=== PATIENT | female | born 1955 | race Caucasian/White ===

== ENCOUNTER → 2020-03-23 14:24 | Outpatient (BNVA) | payer MEDICAID, SELFPAY | PROVIDERS: PCP Internal Medicine; Referring Provider Internal Medicine; Visit Provider Nurse Practitioner | DX: K80.10 Calculus of gallbladder with chronic cholecystitis without obstruction (principal); K21.9 Gastro-esophageal reflux disease without esophagitis; K74.60 Unspecified cirrhosis of liver; R76.8 Other specified abnormal immunological findings in serum; N39.0 Urinary tract infection, site not specified | CPT/HCPCS: 99214 ==

== ENCOUNTER 2020-04-05 09:35 | Outpatient (REF) | payer MEDICAID, SELFPAY ==
[2020-04-05 12:39] LABS: TSH reflex Free T4 0.73 mIU/mL (0.32-4.0)
== END 2020-04-05 09:36 | disposition home or self-care (01) ==
LOC: HO.LAB 09:35
PROVIDERS: PCP Internal Medicine; Visit Provider Internal Medicine
DX: E03.9 Hypothyroidism, unspecified (principal)
CPT/HCPCS: 84443

== ENCOUNTER → 2020-04-05 | Outpatient (BNVA) | payer MEDICAID, SELFPAY | PROVIDERS: PCP Internal Medicine; Referring Provider Internal Medicine; Visit Provider Student in an Organized Health Care Education/Training Program | DX: G47.33 Obstructive sleep apnea (adult) (pediatric) (principal); J44.9 Chronic obstructive pulmonary disease, unspecified; J30.9 Allergic rhinitis, unspecified | CPT/HCPCS: 99213; 99214 ==

== ENCOUNTER 2020-04-09 19:43 | Inpatient (IN) | payer MEDICAID, SELFPAY ==
[2020-04-09 20:08] VITALS: BP 164/83; PULSE 117; RESP 32; TEMP 37.4; O2SAT 88; BMI 34.2
--- NOTE | 2020-04-09 20:17 | ECG_ITS ---
Test Reason : generalized weakness Blood Pressure : / mmHG Vent. Rate : 120 BPM Atrial Rate : 120 BPM P-R Int : 184 ms QRS Dur : 090 ms QT Int : 314 ms P-R-T Axes : 066 102 048 degrees QTc Int : 443 ms Sinus tachycardia Possible Left atrial enlargement Rightward axis Nonspecific ST abnormality Abnormal ECG Compared to previous EKG of at 04:57:36 Heart rate has increased T-wave inversion in Anterior leads is no longer Present Nonspecific ST and T wave abnormality Inferior leads is new Referred By: Elyse Brice Electronically Signed By:ROCCO FISHER MD
--- NOTE | 2020-04-09 20:18 | XR_ITS ---
EXAMINATION: XR chest 1V CLINICAL INFORMATION: Shortness of breath COMPARISON: Prior chest x-ray 02/01/2020 TECHNIQUE: XR chest 1V Tubes and lines: None Lungs and Alicia: Mild vascular redistribution suggesting congestion. Sacculation of the hemidiaphragm suggesting air trapping disease probably COPD. Pleura: Normal. Costophrenic angles are sharp. No pneumothorax. Heart and mediastinum: Heart is enlarged. Prominent alicia unchanged might be vascular.. Bones: Skeletal structures included are normal for patient's age. XR/XR chest 1V IMPRESSION: There has been no change. Pulmonary vascular congestion. Cardiomegaly. Prominent alicia might be vascular. Underlying air trapping disease.
--- NOTE | 2020-04-09 20:19 | CT_ITS ---
EXAMINATION: CT ABDOMEN AND PELVIS WITHOUT CONTRAST CLINICAL INFORMATION: Abdominal pain. Fever COMPARISON: Portions of a previous study 09/23/18 TECHNIQUE: Multidetector volumetric imaging was performed from the superior aspect of the liver through the pubic symphysis. Sagittal and coronal reformatted images were obtained on the technologist's workstation. The patient was unable to suspend respirations This CT examination was performed using dose optimization techniques as appropriate, variously including the following: *Automated exposure control *Adjustment of mA and/or kV according to patient size (this includes techniques or standardized protocols for targeted exams where dose is matched to indication/reason for exam; i.e. extremities or head) *Use of iterative reconstruction technique DLP: 1074 mGy-cm FINDINGS: There is motion artifact. This limits the exam. Digital combination saw operator: Multiple devices overlie the patient. There is gas and fecal residue throughout the colon. There are some gas-filled segments of small bowel in the right midabdomen. LUNG BASES: Fullness in the round the distal esophagus. LIVER, GALLBLADDER, AND BILIARY TREE: Motion limits detail. The liver contour is nodular. There is no large focal liver lesion demonstrated. Multiple small gallstones. No significant biliary dilation. PANCREAS: No definite mass. SPLEEN: No suspicious focal abnormality. ADRENAL GLANDS: No large mass. KIDNEYS AND URETERS: There is mild fullness of the intrarenal collecting system on the left. This appears similar to the previous study. Tiny calcifications in the pelvis could be vascular. Due to motion this is difficult to evaluate. BLADDER: No suspicious abnormality. There may be a tiny droplet of gas non dependently within the urinary bladder. Correlate with any instrumentation. GASTROINTESTINAL TRACT: Limited due to motion. There are multiple small bowel loops closely related to the ventral abdominal wall. There is a ventral hernia. I suspect previous abdominal wall surgery. The tissue planes between the small bowel loops are not well-defined. There was a similar appearance in 2019. The appendix is normal. The stomach is not well evaluated. ABDOMINAL WALL: Extensive abnormalities with ventral hernia and postoperative changes. LYMPH NODES: No convincing adenopathy. No significant intraperitoneal fluid. VASCULAR: There is no abdominal aortic aneurysm. Previous contrast enhanced exam demonstrated marked upper abdominal venous collaterals PELVIC VISCERA: The uterus is not demonstrated and may be surgically absent. OSSEOUS STRUCTURES: No suspicious focal lesion CT/CT abdomen pelvis wo con IMPRESSION: The study is limited. Upper abdominal venous collaterals and irregular liver contour. Multiple gallstones. Abdominal wall hernias with multiple small bowel loops closely aggregated. No evidence of high-grade obstruction or abscess. Low-grade or developing obstruction cannot be entirely excluded. There may be a tiny droplet of gas within the urinary bladder. Correlate with any instrumentation
--- NOTE | 2020-04-09 20:22 | ED_ITS ---
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 Patient emergency department found to be tachycardic and tachypneic and having a high fever of 104.3, patient declined any recent contacts or any recent travel. patient also just finished antibiotic for UTI. Abdominal pain epigastric and periumbilical, for 2 days, pain with no radiation, patient described it as 5/10 (moderate ), no other associated symptoms except generalized weakness and feeling chills, pain has been constant, described as dull aching. Related Data Home Medications Medication Instructions Recorded Confirmed [id number] 1 cap PO QID cap 03/23/20 04/09/20 3,000-9,500-15,000 unit capsule,delayed releas omeprazole 40 mg capsule,delayed 40 mg PO DAILY 03/23/20 04/09/20 release simethicone 180 mg capsule 180 mg PO QID PRN cap 03/23/20 04/09/20 fluticasone 500 mcg-salmeterol 50 1 inh INHALATION BID 04/05/20 04/09/20 mcg/dose blistr powdr for inhalation fluticasone propionate 50 1 spray INTRANASAL DAILY 04/05/20 04/09/20 mcg/actuation nasal spray,suspension furosemide 20 mg tablet 20 mg PO DAILY 04/05/20 04/09/20 levothyroxine 100 mcg tablet 100 mcg PO DAILY 04/05/20 04/09/20 metformin 500 mg tablet 500 mg PO BID 04/05/20 04/09/20 metoprolol tartrate 25 mg tablet 25 mg PO DAILY 04/05/20 04/09/20 valsartan 160 mg tablet 160 mg PO DAILY 04/05/20 04/09/20 Previous Rx's Medication Instructions Recorded dicyclomine 20 mg tablet 20 mg PO TID #90 tab 03/23/20 Allergies Allergy/AdvReac Type Severity Reaction Status Date / Time No Known Allergies Allergy Verified 04/05/20 10:12 Review of Systems Review of Systems: all other systems are reviewed and are negative Constitutional: Reports as per HPI and Reports no additional constitutional complaints, positive for fever and chills and generalized weakness. Eyes: Reports as per HPI and Reports no additional eye complaints Reports system reviewed and no additional complaints, except as documented Cardiovascular: Reports as per HPI and Reports no additional cardiovascular complaints Respiratory: Reports as per HPI and Reports no additional respiratory complaints, patient found in the emergency department to be tachypneic and hypoxic. Gastrointestinal: Reports as per HPI and Reports no additional gastrointestinal complaints , positive for abdominal pain, rectal bleed? versus vaginal bleed?, Genitourinary: Reports no additional female genitourinary complaints Musculoskeletal: Reports no additional musculoskeletal complaints Skin/Breast: Reports system reviewed and no additional complaints, except as docu Psychiatric: Reports no additional psychiatric complaints Endocrine: Reports no additional endocrine complaints Hematologic/Lymphatic: Reports no additional hematologic/lymphatic complaints Allergic/Immunologic: Reports no additional allergic/immunologic complaints Reports system reviewed and no additional complaints, except as documented and Reports Abnormal speech present [facility] Past Medical History Medical History Acute respiratory failure Allergic rhinitis JERAMIE positive COPD (chronic obstructive pulmonary disease) Diabetes mellitus E coli bacteremia Myocardial infarction MARLEN (obstructive sleep apnea) Surgical History H/O cardiac catheterization H/O hernia repair H/O thyroidectomy H/O: hysterectomy History of esophagogastroduodenoscopy (EGD) Family History Family History Father No problems noted. Mother NIDDY (non-insulin dependent diabetes mellitus in young) Unknown NIDDY (non-insulin dependent diabetes mellitus in young) Social History Social History Household Members: Spouse Alcohol intake: never Smoking Status: Never smoker Smoked in Last 30 Days: No Use of substances other than those prescribed or required for medical reasons: No Advance Directives: No Advance Directives Information Provided: Yes Physical Exam Vital Signs: Vital Signs: Vital Signs Temp Pulse Resp BP Pulse Ox 04/09/20 23:20 98.4 F 101 H 25 H 108/58 L 96 04/09/20 20:44 104.5 F H 32 H 96 04/09/20 20:08 99.3 F 117 H 32 H 164/83 H 88 L Body Mass Index 34.2 Vital signs have been reviewed as normal and appeared to be correct. Blood pressure normal. Tachycardia. tachypnea. fever of 104.3. hypoxic, corrected with 4 L of nasal cannula O2. Appearance: Alert. Oriented X3. No acute distress. Head: Normal external exam. Normocephalic. Atraumatic. No Chavarria signs noted. No raccoon eyes noted Eyes: PERRLA. EOMI. Conjunctiva and sclera normal. Eyelids normal. ENT: EAC normal. TM's Normal. Pharynx normal. Uvula midline. Moist mucous membranes. No trismus noted. No drooling noted. No muffled voice noted. Neck: Normal inspection. Neck supple. FROM. No adenopathy. Thyroid Normal. No meningeal signs. No neck mass noted. CVS: Normal heart rate and rhythm. Heart sound normal. No murmurs noted. Pulses normal throughout. Respiratory: No respiratory distress. Painless inspiration. Breath sounds normal. No wheezes/rales/rhonchi noted. Chest nontender. No accessory muscle usage noted or decreased air movement noted. Abdomen: Soft and nontender. Bowel sounds normal in all 4 quadrants. No distention noted. No organomegaly noted. No visible injury noted. Back: No CVA tenderness. Full range of motion noted. Skin: Skin warm and dry. Normal skin color. Normal skin turgor. No rashes/lesions/lacerations noted. Extremities: No lower extremity edema. Extremities exhibit normal range of motion. Extremities nontender. Neuro: Oriented X 3. No motor deficit. No sensory deficit. Reflexes normal. Rectal exam: Unremarkable, stool yellow color with no apparent blood. Vaginal exam: No blood in the vault normal inspection to the external genitalia. Course Course Course Narrative: 64 years old female came in with 2 days of abdominal pain and blood was found in her underwear wondering if it is from rectally or vaginally, patient found in the emergency department meeting sepsis criteria having fever of 104.3, tachycardic and tachypneic. Fever controlled by Tylenol, IV fluids, workup for severe sepsis rule out, testing for COVID, CT abdomen and pelvis, early empiric antibiotic. Medical Decision Making [facility] Narrative Medical decision making narrative: 64-year-old female came in with tachycardi a, tachypnea, high fever, recently just finished an antibiotic for UTI (unknown antibiotic ), chest x-ray showing no new pneumonia, CT of the abdomen and pelvis is not showing acute intra abdominal pathology, because the elevation of the LFTs patient had an ultrasound of the gallbladder which showed no acute pathology. The only source of patient's symptoms is UTI at this point patient is not meeting criteria for severe sepsis or septic shock patient got IV fluids and a dose of ceftriaxone to cover for UTI. Will admit the patient for further evaluation. Lab Data Lab results reviewed: Yes I reviewed the patient's lab results. Result diagrams: 04/09/20 20:31 04/09/20 20:32 Labs: Lab Results 04/09/20 04/09/20 04/09/20 Range/Units 20:31 20:31 20:31 WBC 5.9 (4.8-10.8) X10*3/uL RBC 4.64 (4.20-5.50) X10*6/uL Hgb 12.9 (12.0-16.0) g/dl Hct 38.3 (37-47) % MCV 82.5 (80-98) fL MCH 27.8 (27.0-33.0) pg MCHC 33.7 (31.0-35.0) g/dl RDW 15.9 (11.0-16.0) % Plt Count 63 L (160-400) X10*3/uL MPV Not Reportable Immature Gran % (Auto) 0.2 (0.0-0.4) % Neut % (Auto) 94.4 H (45-73) % Lymph % (Auto) 4.1 L (20-40) % [place] % (Auto) 0.7 L (2-11) % Eos % (Auto) 0.3 (0-4) % Baso % (Auto) 0.3 (0-2) % Lymph # (Auto) 0.2 L (1.2-4.9) X10*3/uL [place] # (Auto) 0.0 L (0.1-1.2) X10*3/uL Eos # (Auto) 0.0 (0.0-0.4) X10*3/uL Baso # (Auto) 0.0 (0.0-0.2) X10*3/uL Abs Immat Gran (auto) 0.01 (0.00-0.03) X10*3/uL Absolute Neuts (auto) 5.6 (2.0-8.3) X10*3/uL Absolute Nucleated RBC 0.000 (0.0-0.012) X10*3/uL Nucleated RBC % (auto) 0.0 (0.0-0.2) /100WBC Smear Tech's Comments VERIFIED Hold Blue Top Sodium (135-145) mmol/L Potassium (3.3-5.1) mmol/l Chloride (96-108) mmol/L Carbon Dioxide (22-29) mmol/L Anion Gap (12-20) BUN (9-16) mg/dL Creatinine (0.5-1.4) mg/dL Estim Creat Clear Calc Estimated GFR Random Glucose (60-115) mg/dL Lactic Acid 1.5 (0.5-2.0) mmol/L Calcium (8.4-10.2) mg/dL Total Bilirubin (0.0-1.0) mg/dL Direct Bilirubin (0.0-0.5) mg/dL AST (5-31) U/L ALT (0-31) U/L Alkaline Phosphatase (39-117) U/L B-Natriuretic Peptide 224 H (<100) pg/mL Total Protein (6.5-8.0) g/dL Albumin (3.5-5.0) g/dL Lipase (8-78) U/L Urine Color Urine Appearance Urine pH (5.0-8.0) Ur Specific Stanton (1.005-1.025) Urine Protein (NEG-TRACE) MG/DL Urine Glucose (UA) (NEG) MG/DL Urine Ketones (NEG) MG/DL Urine Blood (NEG) Urine Nitrite (NEG) Ur Leukocyte Esterase (NEG) Urine RBC (0) /HPF Urine WBC (0-4) /HPF Ur Squamous Epith Cells /LPF Urine Bacteria /LPF Stool Occult Blood (NEG) Coronavirus (PCR) (Negative) 04/09/20 04/09/20 04/09/20 Range/Units 20:32 20:32 20:33 WBC (4.8-10.8) X10*3/uL RBC (4.20-5.50) X10*6/uL Hgb (12.0-16.0) g/dl Hct (37-47) % MCV (80-98) fL MCH (27.0-33.0) pg MCHC (31.0-35.0) g/dl RDW (11.0-16.0) % Plt Count (160-400) X10*3/uL MPV Immature Gran % (Auto) (0.0-0.4) % Neut % (Auto) (45-73) % Lymph % (Auto) (20-40) % Belmont % (Auto) (2-11) % Eos % (Auto) (0-4) % Baso % (Auto) (0-2) % Lymph # (Auto) (1.2-4.9) X10*3/uL [place] # (Auto) (0.1-1.2) X10*3/uL Eos # (Auto) (0.0-0.4) X10*3/uL Baso # (Auto) (0.0-0.2) X10*3/uL Abs Immat Gran (auto) (0.00-0.03) X10*3/uL Absolute Neuts (auto) (2.0-8.3) X10*3/uL Absolute Nucleated RBC (0.0-0.012) X10*3/uL Nucleated RBC % (auto) (0.0-0.2) /100WBC Smear Tech's Comments Hold Blue Top SEE NOTE Sodium 138 (135-145) mmol/L Potassium 3.7 (3.3-5.1) mmol/l Chloride 107 (96-108) mmol/L Carbon Dioxide 19 L (22-29) mmol/L Anion Gap 16 (12-20) BUN 16 (9-16) mg/dL Creatinine 0.69 (0.5-1.4) mg/dL Estim Creat Clear Calc 93.8 Estimated GFR > 60 Random Glucose 115 (60-115) mg/dL Lactic Acid (0.5-2.0) mmol/L Calcium 8.4 (8.4-10.2) mg/dL Total Bilirubin 3.5 H (0.0-1.0) mg/dL Direct Bilirubin 1.6 H (0.0-0.5) mg/dL AST 144 H (5-31) U/L ALT 73 H (0-31) U/L Alkaline Phosphatase 160 H (39-117) U/L B-Natriuretic Peptide (<100) pg/mL Total Protein 6.9 (6.5-8.0) g/dL Albumin 3.5 (3.5-5.0) g/dL Lipase 19 (8-78) U/L Urine Color Urine Appearance Urine pH (5.0-8.0) Ur Specific Stanton (1.005-1.025) Urine Protein (NEG-TRACE) MG/DL Urine Glucose (UA) (NEG) MG/DL Urine Ketones (NEG) MG/DL Urine Blood (NEG) Urine Nitrite (NEG) Ur Leukocyte Esterase (NEG) Urine RBC (0) /HPF Urine WBC (0-4) /HPF Ur Squamous Epith Cells /LPF Urine Bacteria /LPF Stool Occult Blood NEG (NEG) Coronavirus (PCR) (Negative) 04/09/20 04/09/20 Range/Units 20:54 21:23 WBC (4.8-10.8) X10*3/uL RBC (4.20-5.50) X10*6/uL Hgb (12.0-16.0) g/dl Hct (37-47) % MCV (80-98) fL MCH (27.0-33.0) pg MCHC (31.0-35.0) g/dl RDW (11.0-16.0) % Plt Count (160-400) X10*3/uL MPV Immature Gran % (Auto) (0.0-0.4) % Neut % (Auto) (45-73) % Lymph % (Auto) (20-40) % [place] % (Auto) (2-11) % Eos % (Auto) (0-4) % Baso % (Auto) (0-2) % Lymph # (Auto) (1.2-4.9) X10*3/uL [place] # (Auto) (0.1-1.2) X10*3/uL Eos # (Auto) (0.0-0.4) X10*3/uL Baso # (Auto) (0.0-0.2) X10*3/uL Abs Immat Gran (auto) (0.00-0.03) X10*3/uL Absolute Neuts (auto) (2.0-8.3) X10*3/uL Absolute Nucleated RBC (0.0-0.012) X10*3/uL Nucleated RBC % (auto) (0.0-0.2) /100WBC Smear Tech's Comments Hold Blue Top Sodium (135-145) mmol/L Potassium (3.3-5.1) mmol/l Chloride (96-108) mmol/L Carbon Dioxide (22-29) mmol/L Anion Gap (12-20) BUN (9-16) mg/dL Creatinine (0.5-1.4) mg/dL Estim Creat Clear Calc Estimated GFR Random Glucose (60-115) mg/dL Lactic Acid (0.5-2.0) mmol/L Calcium (8.4-10.2) mg/dL Total Bilirubin (0.0-1.0) mg/dL Direct Bilirubin (0.0-0.5) mg/dL AST (5-31) U/L ALT (0-31) U/L Alkaline Phosphatase (39-117) U/L B-Natriuretic Peptide (<100) pg/mL Total Protein (6.5-8.0) g/dL Albumin (3.5-5.0) g/dL Lipase (8-78) U/L Urine Color RED Urine Appearance CLOUDY Urine pH 6.0 (5.0-8.0) Ur Specific Stanton 1.015 (1.005-1.025) Urine Protein 1+ H (NEG-TRACE) MG/DL Urine Glucose (UA) NEG (NEG) MG/DL Urine Ketones 5 (NEG) MG/DL Urine Blood 3+ H (NEG) Urine Nitrite POS H (NEG) Ur Leukocyte Esterase NEG (NEG) Urine RBC TNTC H (0) /HPF Urine WBC 5-9 H (0-4) /HPF Ur Squamous Epith Cells NONE /LPF Urine Bacteria 1+ /LPF Stool Occult Blood (NEG) Coronavirus (PCR) NEGATIVE (Negative) Imaging Data Chest x-ray: Radiologist's impression: There has been no change. Pulmonary vascular congestion. Cardiomegaly. Prominent broderick might be vascular. Underlying air trapping disease CT scan - abdomen: Radiologist's impression: The study is limited. Upper abdominal venous collaterals and irregular liver contour. Multiple gallstones. Abdominal wall hernias with multiple small bowel loops closely aggregated. No evidence of high-grade obstruction or abscess. Low-grade or developing obstruction cannot be entirely excluded. There may be a tiny droplet of gas within the urinary bladder. Correlate with any instrumentation US - abdomen: Radiologist's impression: 1. There are multiple gallstones, there is tenderness over the gallbladder, there are no other signs to suggest cholecystitis, no gallbladder wall thickening or pericholecystic fluid collection and no dilatation of the common bile duct, cannot entirely rule out the possibility of mild cholecystitis. Please correlate clinically. If patient is symptomatic may consider correlation with HIDA scan. 2. Heterogeneous liver texture with somewhat lobular surface concerning for liver parenchymal disease possibly liver cirrhosis. Discharge Plan Discharge Clinical Impression: Urinary tract infection Patient Disposition: Admitted As Inpatient Prescriptions: No Action fluticasone propionate [Flonase Allergy Relief] 50 mcg/actuation spray,suspension 1 spray intranasal DAILY RF: 0 dicyclomine 20 mg tablet 20 mg PO TID Qty: 90 RF: 3 simethicone [Gas Relief (simethicone)] 180 mg capsule 180 mg PO QID PRN (Reason: Indigestion) RF: 0 omeprazole 40 mg capsule,delayed release(DR/EC) 40 mg PO DAILY RF: 0 Creon 3,000-9,500- 15,000 unit capsule,delayed release(DR/EC) 1 cap PO QID RF: 0 metformin 500 mg tablet 500 mg PO BID RF: 0 valsartan 160 mg tablet 160 mg PO DAILY RF: 0 levothyroxine 100 mcg tablet 100 mcg PO DAILY RF: 0 furosemide 20 mg tablet 20 mg PO DAILY RF: 0 fluticasone propion-salmeterol 500-50 mcg/dose blister with device 1 inh inhalation BID RF: 0 metoprolol tartrate 25 mg tablet 25 mg PO DAILY RF: 0
[2020-04-09] MEDS: Acetaminophen 325 MG TABLET 650 MG PO (20:28)
[2020-04-09] MEDS: 0.9 % Sodium Chloride 500 ML 1000 ML IV (20:29)
[2020-04-09 20:40] LABS: OBS1 NEG (NEG)
[2020-04-09 20:41] LABS: OBS Int Ctl Valid YES
[2020-04-09 20:41] LABS: Eosinophils Percent Auto 0.3 % (0-4); Hemoglobin 12.9 g/dl (12.0-16.0); Imm Gran Abs Auto 0.01 X10*3/uL (0.00-0.03); Imm Gran Pct Auto 0.2 % (0.0-0.4); MANUAL DIFF FLAG SCAN; Mean Corpuscular Hemoglobin 27.8 pg (27.0-33.0); Monocytes Percent Auto 0.7 % (2-11); PLT CLUMP 1; Red Blood Count 4.64 X10*6/uL (4.20-5.50); SCAN SMEAR FLAG 1
[2020-04-09 20:43] LABS: Basophils Percent Auto 0.3 % (0-2); Hematocrit 38.3 % (37-47); Lymphocytes Absolute Auto 0.2 X10*3/uL (1.2-4.9); Lymphocytes Percent Auto 4.1 % (20-40); Mean Corpuscular HGB Conc 33.7 g/dl (31.0-35.0); Mean Corpuscular Volume 82.5 fL (80-98); Neutrophils Absolute Auto 5.6 X10*3/uL (2.0-8.3); Neutrophils Percent Auto 94.4 % (45-73); Red Cell Distribution Width 15.9 % (11.0-16.0); White Blood Count 5.9 X10*3/uL (4.8-10.8)
[2020-04-09 20:44] VITALS: RESP 32; TEMP 40.3; O2SAT 96
[2020-04-09] MEDS: cefTRIAXone sodium 1 GM in 0.9 % Sodium Chloride 50 ML IV (20:56)
[2020-04-09 20:59] LABS: Platelet Count 63 X10*3/uL (160-400)
[2020-04-09 21:00] LABS: SLIDE REVIEW VERIFIED
[2020-04-09 21:17] LABS: Lactic Acid 1.5 mmol/L (0.5-2.0)
--- NOTE | 2020-04-09 21:26 | PC.NURSE ---
Pt back from cat scan via stretcher Pt daughter in waiting room, would like to be called for updates Pt up to commode at bedside, urine cloudy and red. Urine obtained and sent. Pt sitting up to side of bed at this time, continues to be on oxygen LS clear dim at bases and mid right. pt getting oxygen via nc 3L
[2020-04-09 21:27] LABS: B Type Natriuretic Peptide 224 pg/mL (<100)
[2020-04-09 21:33] LABS: Alanine Aminotransferase 73 U/L (0-31); Albumin Level 3.5 g/dL (3.5-5.0); Alkaline Phosphatase 160 U/L (39-117); Anion Gap 16 (12-20); Aspartate Amino Transferase 144 U/L (5-31); Bilirubin Direct 1.6 mg/dL (0.0-0.5); Bilirubin Total 3.5 mg/dL (0.0-1.0); Blood Urea Nitrogen 16 mg/dL (9-16); Calcium 8.4 mg/dL (8.4-10.2); Carbon Dioxide 19 mmol/L (22-29); Chloride 107 mmol/L (96-108); Creatinine Clr Calc Pharmacy 93.8; Estimated Glomerular Filt Rate > 60; Glucose Random 115 mg/dL (60-115); Lipase 19 U/L (8-78); Potassium 3.7 mmol/l (3.3-5.1); Sodium 138 mmol/L (135-145); Total Protein 6.9 g/dL (6.5-8.0)
[2020-04-09 21:38] LABS: Glucose Urine UA NEG (NEG); Leukocyte Esterase Urine NEG (NEG); Nitrite Urine POS (NEG); Specific Gravity - Urine 1.015 (1.005-1.025); Urine Blood 3+ (NEG); Urine Ketones 5 MG/DL (NEG); Urine Protein 1+ MG/DL (NEG-TRACE)
[2020-04-09 21:39] LABS: Appearance Urine CLOUDY; Color Urine RED
[2020-04-09 21:41] LABS: Bacteria Urine 1+ /LPF; RBC Urine TNTC /HPF (0)
--- NOTE | 2020-04-09 22:21 | US_ITS ---
EXAMINATION: US ABDOMEN LIMITED CLINICAL INFORMATION: Fever abdominal pain and elevated LFTs. COMPARISON: CT scan same day earlier. TECHNIQUE: Real-time imaging of the right upper quadrant abdominal viscera. FINDINGS: PANCREAS: Normal. LIVER: Echogenic liver suggesting hepatic steatosis. Liver surface is a probably somewhat lobular concerning for possible liver cirrhosis. No focal hepatic lesion. There is no intrahepatic biliary duct dilatation seen. GALLBLADDER: There are multiple gallstones. The wall of the gallbladder is not thickened and there is no pericholecystic fluid collection. There is some tenderness over the gallbladder area. Cannot entirely rule out the possibility of cholecystitis. COMMON BILE DUCT: Normal in caliber measuring 0.3 cm in diameter. RIGHT KIDNEY: Normal. No hydronephrosis. No renal calculi or focal parenchymal lesions. The kidney measures 8.8 cm in maximum dimension. FREE FLUID: None. US/US abdomen limited IMPRESSION: 1. There are multiple gallstones, there is tenderness over the gallbladder, there are no other signs to suggest cholecystitis, no gallbladder wall thickening or pericholecystic fluid collection and no dilatation of the common bile duct, cannot entirely rule out the possibility of mild cholecystitis. Please correlate clinically. If patient is symptomatic may consider correlation with HIDA scan. 2. Heterogeneous liver texture with somewhat lobular surface concerning for liver parenchymal disease possibly liver cirrhosis.
[2020-04-09 22:33] LABS: SARS COV2 PCR INHOUSE NEGATIVE (Negative)
[2020-04-09 23:20] VITALS: BP 108/58; PULSE 101; RESP 25; TEMP 36.9; O2SAT 96
[2020-04-10] VITALS (8 sets, daily range): BP systolic 98–135; BP diastolic 55–68; PULSE 69–78; RESP 18–20; TEMP 36.3–37.1; O2SAT 95–98; BMI 32.4
--- NOTE | 2020-04-10 00:16 | PC.NURSE ---
Attempt to give report to the floor, floor nurse to call back.
--- NOTE | 2020-04-10 03:02 | P.HPIM_ITS ---
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 Patient reports that she had a UTI about 15 days ago, which also presented as which she urea, she reports that she had UA done at her PCP and found UTI was given antibiotics which she finished 3 days ago. Patient reports that since finishing antibiotic she developed more hematuria, urgency, urinary frequency. She also has fever and chills. She has nausea with Few episodes of vomiting. She has generalized weakness and shaking. She otherwise has no chest pain, shortness of breath, no abdominal pain. On arrival to the ED hemodynamically stable with tachycardia, tachypnea, with a heart rate of 117 and respiratory rate of 32, labs are significant for normal WBC count, left shift, total bili of 3.5, direct bili of 1.6, AST of 144, ALT 73, alk-phos of 160 area that is positive for blood, nitrite, WBC abdominal CT showed upper abdominal venous collaterals on rate irregular liver contour concerning for liver cirrhosis, abdominal wall hernias with multiple small bowel loops closer grade gated with no evidence of obstruction. ABD US showed gallstones with no evidence of cholecystitis Past medical history: Hypertension, diabetes, hypothyroidism, GERD, liver cirrhosis, COPD, history of coronary artery disease past surgical history: Thyroidectomy, hysterectomy, hernia repair family history: Significant for hypertension, diabetes social history: Comes from home, lives with her her daughter, denies any tobacco alcohol or illicit drugs Review of Systems Review of Systems: Yes all other systems are reviewed and are negative [facility] Medical History Acute respiratory failure Allergic rhinitis JERAMIE positive COPD (chronic obstructive pulmonary disease) Diabetes mellitus E coli bacteremia Myocardial infarction MARLEN (obstructive sleep apnea) Family History Father No problems noted. Mother NIDDY (non-insulin dependent diabetes mellitus in young) Unknown NIDDY (non-insulin dependent diabetes mellitus in young) Surgical History H/O cardiac catheterization H/O hernia repair H/O thyroidectomy H/O: hysterectomy History of esophagogastroduodenoscopy (EGD) Social History Household Members: Spouse Housing: Apartment Do you presently have visiting nurse or other home services: No Alcohol intake: never Smoking Status: Never smoker Smoked in Last 30 Days: Yes Use of substances other than those prescribed or required for medical reasons: No Advance Directives: No Advance Directives Information Provided: Yes Meds Allergies Allergy/AdvReac Type Severity Reaction Status Date / Time No Known Allergies Allergy Verified 04/05/20 10:12 Home Medications Medication Instructions Recorded Confirmed Type qevewe-[id number]-bwquest 1 cap PO QID cap 03/23/20 04/09/20 History 3,000-9,500-15,000 unit capsule,delayed releas omeprazole 40 mg capsule,delayed 40 mg PO DAILY 03/23/20 04/09/20 History release simethicone 180 mg capsule 180 mg PO QID PRN cap 03/23/20 04/09/20 History fluticasone 500 mcg-salmeterol 50 1 inh INHALATION BID 04/05/20 04/09/20 History mcg/dose blistr powdr for inhalation fluticasone propionate 50 1 spray INTRANASAL DAILY 04/05/20 04/09/20 History mcg/actuation nasal spray,suspension furosemide 20 mg tablet 20 mg PO DAILY 04/05/20 04/09/20 History levothyroxine 100 mcg tablet 100 mcg PO DAILY 04/05/20 04/09/20 History metformin 500 mg tablet 500 mg PO BID 04/05/20 04/09/20 History metoprolol tartrate 25 mg tablet 25 mg PO DAILY 04/05/20 04/09/20 History valsartan 160 mg tablet 160 mg PO DAILY 04/05/20 04/09/20 History Physical Exam Vital Signs and Narrative: Vital Signs: Last Vital Signs Temp 98.4 F 04/10/20 02:40 Pulse 77 04/10/20 02:40 Resp 20 04/10/20 02:40 BP 117/65 04/10/20 02:40 Pulse Ox 96 04/10/20 02:40 Body Mass Index 34.2 Const: General: cooperative and no acute distress Orientation/consciousness: patient oriented x3 Eyes: General: appearance normal, both eyes and all related structures Pupils: Equal, round and reactive pupils present Resp: Effort & Inspection: normal respiratory effort and able to speak in complete sentences Auscultation: clear to auscultation bilaterally Cardio: Rate: regular rate Rhythm: regular rhythm GI: Palpation (GI): Soft to palpation Auscultation: normal bowel sounds : Other: no CVA tenderness Skin: General skin exam: no rashes or lesions noted Neuro: General: patient oriented x3 Cranial nerves: Yes Equal, round and reactive pupils present Cognition (Neuro): normal cognition Extrem: General: Yes normal to inspection and Yes no pedal edema Results Labs Labs: Laboratory Tests 04/09/20 04/09/20 04/09/20 20:31 20:31 20:31 WBC 5.9 RBC 4.64 Hgb 12.9 Hct 38.3 MCV 82.5 MCH 27.8 MCHC 33.7 RDW 15.9 Plt Count 63 L MPV Not Reportable Immature Gran % (Auto) 0.2 Neut % (Auto) 94.4 H Lymph % (Auto) 4.1 L [place] % (Auto) 0.7 L Eos % (Auto) 0.3 Baso % (Auto) 0.3 Lymph # (Auto) 0.2 L [place] # (Auto) 0.0 L Eos # (Auto) 0.0 Baso # (Auto) 0.0 Abs Immat Gran (auto) 0.01 Absolute Neuts (auto) 5.6 Absolute Nucleated RBC 0.000 Nucleated RBC % (auto) 0.0 Smear Tech's Comments VERIFIED Hold Blue Top Sodium Potassium Chloride Carbon Dioxide Anion Gap BUN Creatinine Estim Creat Clear Calc Estimated GFR Random Glucose Lactic Acid 1.5 Calcium Total Bilirubin Direct Bilirubin AST ALT Alkaline Phosphatase B-Natriuretic Peptide 224 H Total Protein Albumin Lipase Urine Color Urine Appearance Urine pH Ur Specific [place] Urine Protein Urine Glucose (UA) Urine Ketones Urine Blood Urine Nitrite Ur Leukocyte Esterase Urine RBC Urine WBC Ur Squamous Epith Cells Urine Bacteria Stool Occult Blood Coronavirus (PCR) 04/09/20 04/09/20 04/09/20 20:32 20:32 20:33 WBC RBC Hgb Hct MCV MCH MCHC RDW Plt Count MPV Immature Gran % (Auto) Neut % (Auto) Lymph % (Auto) F[place] % (Auto) Eos % (Auto) Baso % (Auto) Lymph # (Auto) [place] # (Auto) Eos # (Auto) Baso # (Auto) Abs Immat Gran (auto) Absolute Neuts (auto) Absolute Nucleated RBC Nucleated RBC % (auto) Smear Tech's Comments Hold Blue Top SEE NOTE Sodium 138 Potassium 3.7 Chloride 107 Carbon Dioxide 19 L Anion Gap 16 BUN 16 Creatinine 0.69 Estim Creat Clear Calc 93.8 Estimated GFR > 60 Random Glucose 115 Lactic Acid Calcium 8.4 Total Bilirubin 3.5 H Direct Bilirubin 1.6 H AST 144 H ALT 73 H Alkaline Phosphatase 160 H B-Natriuretic Peptide Total Protein 6.9 Albumin 3.5 Lipase 19 Urine Color Urine Appearance Urine pH Ur Specific [place] Urine Protein Urine Glucose (UA) Urine Ketones Urine Blood Urine Nitrite Ur Leukocyte Esterase Urine RBC Urine WBC Ur Squamous Epith Cells Urine Bacteria Stool Occult Blood NEG Coronavirus (PCR) 04/09/20 04/09/20 20:54 21:23 WBC RBC Hgb Hct MCV MCH MCHC RDW Plt Count MPV Immature Gran % (Auto) Neut % (Auto) Lymph % (Auto) [place] % (Auto) Eos % (Auto) Baso % (Auto) Lymph # (Auto) [place] # (Auto) Eos # (Auto) Baso # (Auto) Abs Immat Gran (auto) Absolute Neuts (auto) Absolute Nucleated RBC Nucleated RBC % (auto) Smear Tech's Comments Hold Blue Top Sodium Potassium Chloride Carbon Dioxide Anion Gap BUN Creatinine Estim Creat Clear Calc Estimated GFR Random Glucose Lactic Acid Calcium Total Bilirubin Direct Bilirubin AST ALT Alkaline Phosphatase B-Natriuretic Peptide Total Protein Albumin Lipase Urine Color RED Urine Appearance CLOUDY Urine pH 6.0 Ur Specific [place] 1.015 Urine Protein 1+ H Urine Glucose (UA) NEG Urine Ketones 5 Urine Blood 3+ H Urine Nitrite POS H Ur Leukocyte Esterase NEG Urine RBC TNTC H Urine WBC 5-9 H Ur Squamous Epith Cells NONE Urine Bacteria 1+ Stool Occult Blood Coronavirus (PCR) NEGATIVE Assessment and Plan (1) Sepsis: Status: Acute (2) Urinary tract infection: Qualifiers: Hematuria presence: with hematuria Urinary tract infection type: site unspecified Qualified Code(s): N39.0 - Urinary tract infection, site not specified; R31.9 - Hematuria, unspecified Status: Acute (3) Diabetes mellitus: Status: Acute (4) Chronic cholecystitis: Problem details: HIDA SCAN 02/2020 IMPRESSION: 1. Visualization of the gallbladder is evidence of a patent cystic duct and strong evidence against the diagnosis of acute cholecystitis. The common bile duct is patent. Liver function appears normal. 2. Poor gallbladder emptying and a low gallbladder ejection fraction are evidence of impaired gallbladder contractility and most likely due to chronic cholecystitis. Status: Acute (5) GERD (gastroesophageal reflux disease): Status: Acute (6) Chronic hepatitis C: Problem details: 03/05 20- VIRAL LOAD LIKELY [employer] IMMUNITY Status: Acute (7) Hypothyroid: Status: Acute (8) Cirrhosis: Problem details: Most likely from chronic hepatitis C it has since resolved but may be an overlay of CARDONA * LABS; LABS: 02/2020 hemochromatosis genetic screen was negative, ferritin was 203, which was a sudden jump from 53 last year autoimmune workup is negative, ceruloplasmin is normal * US ABD 01/2020 IMPRESSION: Irregular heterogeneous liver suggesting underlying cirrhosis. No suspicious focal liver lesion or ascites. Suspect upper abdominal venous collaterals. The deep abdominal venous system was not interrogated. Status: Acute (9) Hematuria: Status: Acute this is a 64-year-old female with above-mentioned past medical history who presents to the hospital with sepsis secondary to UTI # sepsis - secondary to urinary tract infection - failed outpatient therapy - UA positive for leukocyte as well as nitrites - tachycardic, as well as tachypneic on arrival plan: - Start on ceftriaxone - blood cultures been collected in the ED as well as urine cultures will follow - IV fluids # hematuria - most likely secondary to UTI - hemoglobin stable Plan: - Treat with antibiotics of the TI - if hematuria continues to sitter urology consult # UTI - failed outpatient therapy - will start with ceftriaxone - follow urine cultures # chronic cholecystitis - abdominal ultrasound negative for any active acute cholecystitis # hypothyroidism - continue levothyroxine # history of liver cirrhosis with chronic hep C - patient reports that she is being followed by gastroenterology at this time - follow-up outpatient # diabetes - and metformin- will hold - will start low-dose sliding scale insulin - diabetic diet DVT prophylaxis: SCDs #
[2020-04-10 03:04] LABS: Glucose, Whole Blood 128 mg/dL (60-115)
[2020-04-10] MEDS: 0.9 % Sodium Chloride Flush 3 ML SYRINGE IVFLUSH (06:01)
[2020-04-10] MEDS: Lactated Ringers 1,000 ML 100 ML IVCONT ×2 (06:02→15:55)
[2020-04-10] MEDS: Levothyroxine Sodium 100 MCG TABLET PO (06:04)
[2020-04-10 06:13] LABS: Hemoglobin 11.5 g/dl (12.0-16.0); PLT ABN DIST 1; Platelet Count 69 X10*3/uL (160-400)
[2020-04-10 06:15] LABS: Hematocrit 33.7 % (37-47); Mean Corpuscular HGB Conc 34.1 g/dl (31.0-35.0); Mean Corpuscular Hemoglobin 28.6 pg (27.0-33.0); Mean Corpuscular Volume 83.8 fL (80-98); Mean Platelet Volume 12.4 fL (9.4-12.3); Red Blood Count 4.02 X10*6/uL (4.20-5.50); Red Cell Distribution Width 15.8 % (11.0-16.0); White Blood Count 16.2 X10*3/uL (4.8-10.8)
[2020-04-10 06:41] LABS: Anion Gap 11 (12-20); Blood Urea Nitrogen 16 mg/dL (9-16); Calcium 7.8 mg/dL (8.4-10.2); Carbon Dioxide 21 mmol/L (22-29); Chloride 110 mmol/L (96-108); Creatinine Clr Calc Pharmacy 88.6; Estimated Glomerular Filt Rate > 60; Glucose Random 139 mg/dL (60-115); Potassium 3.5 mmol/l (3.3-5.1); Sodium 138 mmol/L (135-145)
[2020-04-10 07:24] LABS: Glucose, Whole Blood 105 mg/dL (60-115)
[2020-04-10 07:28] LABS: Band Neutrophils Percent 18 % (3-5); Lymphocytes Absolute Manual 0.5 X10*3/uL (0.6-4.8); Lymphocytes Percent Manual 3 % (20-40); Monocytes Absolute Manual 0.2 X10*3/uL (0.0-1.2); Monocytes Percent Manual 1 % (2-11); Neutrophils Absolute Manual 15.6 X10*3/uL (2.2-7.9); Neutrophils Percent Manual 78 % (45-73)
[2020-04-10 07:29] LABS: RBC Morphology NOTED
[2020-04-10 07:30] LABS: Acanthocytes 1+; Platelet Estimate DECREASED (NORMAL); Platelet Morphology Comment NOTED; Schistocytes 1+
[2020-04-10 07:31] LABS: Large Platelet PRESENT
[2020-04-10 08:57] LABS: Alanine Aminotransferase 60 U/L (0-31); Albumin Level 2.8 g/dL (3.5-5.0); Alkaline Phosphatase 117 U/L (39-117); Aspartate Amino Transferase 96 U/L (5-31); Bilirubin Direct 0.9 mg/dL (0.0-0.5); Bilirubin Total 1.4 mg/dL (0.0-1.0); Total Protein 5.7 g/dL (6.5-8.0)
--- NOTE | 2020-04-10 09:20 | MHC.CM.PN ---
Patient lives in an apartment with her and she is functionally independent. Patient's goal for dc is to return home and CM has initiated and will follow for dc planning. Patient's 2 Daughters are her HCP and PCP is Dr. Niecy Rdz.
[2020-04-10] MEDS: Metoprolol Tartrate 25 MG TABLET PO (09:44)
[2020-04-10] MEDS: Furosemide 20 MG TABLET PO (09:44)
[2020-04-10] MEDS: Omeprazole 40 MG CAPSULE.DR PO (09:44)
[2020-04-10] MEDS: Valsartan 160 MG TABLET PO (09:45)
[2020-04-10 11:04] LABS: Glucose, Whole Blood 111 mg/dL (60-115)
--- NOTE | 2020-04-10 11:52 | P.CDIC_ITS ---
CDI Concurrent Query Service Date: 04/10/20 Documentation Clarification: Please clarify if you are treating a proba ble/suspected/likely or confirmed: Hypoxemia, poa, resolved Please specify if known Hypoxia, appears to be isloated Provider Response: Other (Hypoxia, isolated reading) Other Diagnosis: hypoxia PLEASE DO NOT DELETE/MODIFY EXISTING CONTENT Additional information is needed in order to code to the highest accuracy and appropriate Severity of Illness (SOI). Please clarify the information noted below in your progress notes and discharge summary. Risk Factors/Clinical Indicators/Treatments ED: RR 32 pulse ox 88L hypoxic corrected w 4 liters of NC O2 History of Acute respiratory failure. Respiratory as per HPI and reports no additional complaints, tachypneic and hyp oxic. Ext. [id number] CDS: Jimena Goldsmith CCS, CDIS Contact Number: Please Review the information above and exercise your independent professional judgment in responding to the query. If you concur, pleas document in the PROGRESS NOTES and DISCHARGE SUMMARY. If you do not agree with the query, please document in the query above. THIS QUERY IS PART OF THE PERMANENT MEDICAL RECORD
--- NOTE | 2020-04-10 13:22 | HO.PM.IMPN ---
Subjective Subjective Date of Service: 04/10/20 Interval History: seen and examined. denies abdominal pain, no n/v some intermittent hematuria Review of Systems General - no fevers or chills Cardiovascular - no chest pain Respiratory - no shortness of breath or cough Abdominal- no abdominal pain, nausea, vomiting, diarrhea - hematuria Physical Exam Vital Signs: Vital Signs: Vital Signs Temp Pulse Resp BP Pulse Ox 04/10/20 11:20 97.3 F 69 18 100/58 L 95 04/10/20 09:45 72 113/68 04/10/20 09:44 72 113/68 04/10/20 07:17 97.6 F 72 18 113/68 97 04/10/20 04:00 97.6 F 72 18 98/55 L 98 04/10/20 02:40 98.4 F 77 20 117/65 96 04/09/20 23:20 98.4 F 101 H 25 H 108/58 L 96 04/09/20 20:44 104.5 F H 32 H 96 04/09/20 20:08 99.3 F 117 H 32 H 164/83 H 88 L Body Mass Index 32.4 General - no acute distress, appears comfortable Cardiovascular - regular rate and rhythm, S1-S2 Lungs - normal respiratory effort, clear to auscultation bilaterally, no wheezing Abdomen - soft, non-tender, no RUQ tenderness Extremities - no edema bilaterally Neuro - awake and alert, no focal deficits Objective Data Current Medications Generic Name Dose Route Start Last Admin Trade Name Freq PRN Reason Stop Dose Admin Acetaminophen 650 mg 04/10/20 02:44 Acetaminophen 325 Mg Tablet PO Q6H PRN Pain, Mild (Pain Scale 1-3) Docusate Sodium 100 mg 04/10/20 02:44 Docusate Sodium 100 Mg Capsule PO DAILY PRN Constipation Furosemide 20 mg 04/10/20 08:00 04/10/20 09:44 Furosemide 20 Mg Tablet PO 20 mg DAILY@0800 [facility] Administration Protocol Lactated Ringer's 1,000 mls @ 100 mls/hr 04/10/20 04:00 04/10/20 06:02 Lr IVCONT 100 mls/hr .Q10H KOJO Administration Piperacillin Sod/Tazobactam 50 mls @ 100 mls/hr 04/10/20 13:00 Sod 3.375 gm/ Sodium Chloride IV Q6H [facility] Insulin Human Lispro 0 unit 04/10/20 07:30 04/10/20 09:45 Insulin Lispro 100 Unit/Ml 3 Ml Vial SUBCUT Not Given QIDACHS [facility] Protocol Levothyroxine Sodium 100 mcg 04/10/20 06:00 04/10/20 06:04 Levothyroxine Sodium 100 Mcg Tablet PO 100 mcg DAILY@0600 [facility] Administration Metoprolol Tartrate 25 mg 04/10/20 09:00 04/10/20 09:44 Metoprolol Tartrate 25 Mg Tablet PO 25 mg DAILY [facility] Administration Protocol Non-Formulary Medication 1 cap 04/10/20 09:00 Mtxbir-Otggeobc-Lzqekaa [Creon] PO QID [facility] Omeprazole 40 mg 04/10/20 09:00 04/10/20 09:44 Omeprazole 40 Mg Capsule.Dr PO 40 mg DAILY [facility] Administration Ondansetron HCl 4 mg 04/10/20 02:44 Ondansetron Hcl 4 Mg/2 Ml Vial IVPUSH Q8H PRN Nausea and Vomiting Pharmacy Consult 1 each 04/09/20 20:16 Consult Rx Perform Med Rec MISCELLANE ONCE PRN Consult order Simethicone 160 mg 04/10/20 03:11 Simethicone 80 Mg Tab.Chew PO QID PRN Indigestion/Gas Sodium Chloride 3 ml 04/10/20 02:44 04/10/20 09:46 0.9 % Sodium Chloride Flush 3 Ml Syringe IVFLUSH Not Given QSHIFT [facility] Valsartan 160 mg 04/10/20 09:00 04/10/20 09:45 Valsartan 160 Mg Tablet PO 160 mg DAILY [facility] Administration Protocol Labs CBC & Chem 7: 04/10/20 05:46 04/10/20 05:46 Microbiology Microbiology Results: Microbiology 04/09/20 20:46 Blood - Venous Blood Culture - Preliminary 04/09/20 20:29 Blood - Venous Blood Culture - Preliminary 04/09/20 21:43 Urine clean catch - Clean Catch Midstream Urine Culture - Final Assessment and Plan (1) Hematuria: Status: Acute (2) Sepsis: Status: Acute (3) Urinary tract infection: Status: Acute Assessment and Plan: This is a a 64 yo F with a PMH of Cirrhosis, previous UTI and bacteremia, COPD, DM, CAD, MARLEN who presents to the hospital with complaints of chills and hematuria. She is admitted for sepsis secondary to UTI vs biliary source. 1. Sepsis secondary to UTI vs bilaray source, Gram Neg Bacteremia given hematuria and UA -- suspect urine source change rocephin to zosyn to cover for intraabdominal f/u cultures 2. UTI zosyn f/u cultures 3. Cirrhosis LFTs downtrending possibly acute worsened due to infection vs ? stone 4. Hypoxia, history of copd isolated reading x 1 on RA now updrafts as needed 5. History of HTN bp soft, unfortunately she got her antihypertensives 6. History of hep c outpatient f/u 7. Hypothyroid synthroid Full Code DVT pptx, scd due to hematuria daughter bedside -- updates given
[2020-04-10] MEDS: Piperacillin Sodium/Tazobactam 3.375 GM in 0.9 % Sodium Chloride 50 ML IV ×2 (14:21→19:33)
[2020-04-10] MEDS: Acetaminophen 325 MG TABLET 650 MG PO (15:54)
[2020-04-10 16:25] LABS: Glucose, Whole Blood 100 mg/dL (60-115)
--- NOTE | 2020-04-10 16:38 | P.CNID_ITS ---
History of Present Illness Data of Consult Service Date: 04/10/20 Requesting physician: Charli Antony Primary Care Provider: Niecy Lindsey MD HPI Reason for consult: bacteremia She presents with abdominal discomfort,4/5 generalized She has not described dysuria She has no nausea or vomiting Urine mixed godfrey and gram negative blood Review of Systems Review of Systems: Yes all other systems are reviewed and are negative [facility] Past Medical History Medical History (Updated 04/11/20 @ 17:17 by Rickie Hess MD) Acute respiratory failure Allergic rhinitis NIECY positive COPD (chronic obstructive pulmonary disease) Diabetes mellitus E coli bacteremia Heart disease Myocardial infarction MARLEN (obstructive sleep apnea) Right upper quadrant abdominal pain Family History Family History (Updated 04/11/20 @ 10:09 by Nila Barcenas MD) Father Lung disease Mother HTN (hypertension) Sister Lung disease Sister No problems noted. Sister No problems noted. Brother No problems noted. Brother No problems noted. Daughter No problems noted. Daughter No problems noted. Son No problems noted. Family history: reviewed and not pertinent Surgical History Surgical History (Updated 04/11/20 @ 10:06 by Nila Barcenas MD) H/O cardiac catheterization H/O hernia repair H/O thyroidectomy H/O: hysterectomy History of esophagogastroduodenoscopy (EGD) Social History Social History (Updated 04/11/20 @ 10:10 by Nila Barcenas MD) Household Members: Spouse Housing: Apartment Alcohol intake: never Smoking Status: Never smoker service: No Current occupational status: unemployed Meds Allergies Allergy/AdvReac Type Severity Reaction Status Date / Time No Known Allergies Allergy Verified 04/11/20 10:10 Home Medications Medication Instructions Recorded Confirmed Type lsfeey-bvopswta-gbxumum 1 cap PO QID cap 03/23/20 04/09/20 History 3,000-9,500-15,000 unit capsule,delayed releas omeprazole 40 mg capsule,delayed 40 mg PO DAILY 03/23/20 04/09/20 History release simethicone 180 mg capsule 180 mg PO QID PRN cap 03/23/20 04/09/20 History fluticasone 500 mcg-salmeterol 50 1 inh INHALATION BID 04/05/20 04/09/20 History mcg/dose blistr powdr for inhalation fluticasone propionate 50 1 spray INTRANASAL DAILY 04/05/20 04/09/20 History mcg/actuation nasal spray,suspension levothyroxine 100 mcg tablet 100 mcg PO DAILY 04/05/20 04/09/20 History metformin 500 mg tablet 500 mg PO BID 04/05/20 04/09/20 History metoprolol tartrate 25 mg tablet 25 mg PO DAILY 04/05/20 04/09/20 History valsartan 160 mg tablet 160 mg PO DAILY 04/05/20 04/09/20 History Physical Exam Vital Signs: Vital Signs: Vital Signs Temp Pulse Resp BP Pulse Ox 04/10/20 16:00 98.2 F 78 20 135/67 97 04/10/20 11:20 97.3 F 69 18 100/58 L 95 04/10/20 09:45 72 113/68 04/10/20 09:44 72 113/68 04/10/20 07:17 97.6 F 72 18 113/68 97 04/10/20 04:00 97.6 F 72 18 98/55 L 98 04/10/20 02:40 98.4 F 77 20 117/65 96 04/09/20 23:20 98.4 F 101 H 25 H 108/58 L 96 04/09/20 20:44 104.5 F H 32 H 96 04/09/20 20:08 99.3 F 117 H 32 H 164/83 H 88 L Body Mass Index 32.4 Const: General: cooperative Orientation/consciousness: oriented to person HENMT: Head: Yes normal to inspection Resp: Effort & Inspection: normal respiratory effort Cardio: Rate: regular rate Rhythm: regular rhythm GI: Inspection: Yes normal to inspection Palpation (GI): Soft to palpation and not firm : General: Yes CVA tenderness and No no CVA tenderness Back/Spine/Pelvis: Back: No no CVA tenderness and CVA tenderness Skin: General skin exam: no rashes or lesions noted Neuro: General: oriented to person Assessment and Plan (1) Hematuria: Status: Acute Would continue Piperacillin/Tazobactam Await final culture blood Duration may be 14 d,change to po when able (2) Sepsis: Status: Acute (3) Urinary tract infection: Qualifiers: Hematuria presence: with hematuria Urinary tract infection type: site unspecified Qualified Code(s): N39.0 - Urinary tract infection, site not specified; R31.9 - Hematuria, unspecified Status: Acute Results Labs CBC & Chem 7: 04/12/20 09:57 04/12/20 09:57 Labs: Short CBC 04/09/20 04/10/20 Range/Units 20:31 05:46 WBC 5.9 16.2 H (4.8-10.8) X10*3/uL Hgb 12.9 11.5 L (12.0-16.0) g/dl Hct 38.3 33.7 L (37-47) % Plt Count 63 L 69 L (160-400) X10*3/uL BMP 04/09/20 04/10/20 20:32 05:46 Sodium 138 138 Potassium 3.7 3.5 Chloride 107 110 H Carbon Dioxide 19 L 21 L BUN 16 16 Creatinine 0.69 0.73 Calcium 8.4 7.8 L Liver Function 04/09/20 04/10/20 Range/Units 20:32 05:46 Total Bilirubin 3.5 H 1.4 H (0.0-1.0) mg/dL Direct Bilirubin 1.6 H 0.9 H (0.0-0.5) mg/dL AST 144 H 96 H (5-31) U/L ALT 73 H 60 H (0-31) U/L Alkaline Phosphatase 160 H 117 D (39-117) U/L Albumin 3.5 2.8 L (3.5-5.0) g/dL Urine 04/09/20 Range/Units 21:23 Urine Color RED Urine Appearance CLOUDY Urine pH 6.0 (5.0-8.0) Ur Specific [place] 1.015 (1.005-1.025) Urine Protein 1+ H (NEG-TRACE) MG/DL Urine Glucose (UA) NEG (NEG) MG/DL Microbiology Microbiology Results: Microbiology 04/09/20 20:46 Blood - Venous Blood Culture - Preliminary 04/09/20 20:29 Blood - Venous Blood Culture - Preliminary 04/09/20 21:43 Urine clean catch - Clean Catch Midstream Urine Culture - Final
[2020-04-10 21:19] LABS: Glucose, Whole Blood 123 mg/dL (60-115)
[2020-04-11] VITALS (7 sets, daily range): BP systolic 128–158; BP diastolic 71–84; PULSE 61–88; RESP 18–20; TEMP 36.6–37.1; O2SAT 92–98; BMI 33.0
[2020-04-11] MEDS: Piperacillin Sodium/Tazobactam 3.375 GM in 0.9 % Sodium Chloride 50 ML IV ×4 (00:49→21:09)
[2020-04-11] MEDS: Lactated Ringers 1,000 ML 100 ML IVCONT ×3 (01:23→21:10)
[2020-04-11] MEDS: Levothyroxine Sodium 100 MCG TABLET PO (05:53)
[2020-04-11 07:28] LABS: Glucose, Whole Blood 93 mg/dL (60-115)
[2020-04-11] MEDS: Omeprazole 40 MG CAPSULE.DR PO (09:34)
[2020-04-11] MEDS: Metoprolol Tartrate 25 MG TABLET PO (09:34)
--- NOTE | 2020-04-11 09:53 | P.CONGS_ITS ---
History of Present Illness Consult details Consult date: 04/11/20 Reason for consult: gallstones Requesting physician: Charli Antony Narrative: This is a 64-year-old lady who is [place]-speaking who presented to the emergency department 2 days ago with a complaint of hematuria nausea and vomiting. Patient reports a history similar hematuria that was milder 15 days prior. She saw her primary care provider who ordered a urine culture and then treated her with a course of antibiotics. She reports she felt better and had resolution of the hematuria. Patient was in her normal state of health until she developed hematuria which was worsening 2 days ago. She reported having chills at home but denies fever. She was seen in the emergency department urine culture was obtained which showed some bacteria nitrate positive. Patient had a normal white blood cell count emergency department was noted to have a fever to 104.5 degrees F. patient denies any abdominal pain. She underwent a CT scan of the abdomen and pelvis which showed a gallstone within the gallbladder without any evidence of pericholecystic fluid or inflammatory changes of the gallbladder. She does have evidence of liver disease and is known to have cirrhosis secondary to hepatitis-C. She also did have some venous collaterals that were seen on the abdominal wall. Patient was admitted to the Medicine service for treatment of possible urinary sepsis. Patient had Urine cultures that are final and have grown out gram-negative rods as well as gram-positive cocci. There are greater than 50,000 colony forming units but less than 100,000 colony-forming units. patient also had 2 blood cultures that grew out gram- negative rods but are preliminary and results. Patient's white blood cell count increased to 16 yesterday. She was also noted on admission to have elevated liver function tests that have decreased significantly as of yesterday's laboratory values. Patient is currently tolerating diet and denies any nausea vomiting. She reports the hematuria has resolved. She reports she feels well and is back to her normal state of health. Surgery was asked to see this patient regarding possibility of chronic cholecystitis as a source of the gram-negative rods seen on blood cultures. Review of Systems Constitutional: Constitutional: Denies anorexia, Denies body ache(s), Denies chills, Denies difficulty sleeping, Denies fatigue, Denies fever(s), Denies malaise, Denies night sweats and Denies poor appetite Eyes: Eyes: Denies blurry vision, Denies change in vision, Denies floaters, Denies loss of vision, Denies other visual disturbances and Reports requires corrective lenses ENT: Denies change in voice, Denies dysphagia, Denies vertigo, Denies dizziness, Reports hearing loss ( Decreased hearing in the right ear), Denies mouth lesions, Denies neck mass, Denies neck pain and Denies sore throat Cardiovascular: Cardiovascular: Denies Abdominal Distension, Denies chest pain at rest, Denies chest pain with activity, Denies Epigastric Pain, Denies epigastric discomfort, Denies syncope, Denies rapid heart rate, Denies pedal edema, Denies edema, Denies lightheadedness and Reports dyspnea on exertion ( with walking) Respiratory: Respiratory: Denies chest congestion, Denies cough, Denies hemoptysis and Reports dyspnea on exertion ( with walking) Gastrointestinal: Gastrointestinal: Denies abdominal pain, Denies belching, Denies melena, Denies bloating, Denies hematochezia, Denies change in bowel habits, Denies constipation, Denies dysphagia, Denies early satiety, Denies dyspepsia, Denies heartburn, Denies diarrhea, Denies loose stools, Denies nausea and Denies vomiting Genitourinary: Genitourinary: Denies hematuria, Denies urinary frequency, Denies difficulty voiding, Denies nocturia, Denies flank pain, Denies urinary hesitancy and Denies urinary urgency Musculoskeletal: Musculoskeletal: Reports abnormal gait ( patient reports weakness), Reports back pain, Reports arthralgias, Reports limited range of motion, Denies neck pain and Reports stiffness Integumentary/Breasts: Skin/Breast: Denies breast swelling, Denies breast pain, Denies breast mass, Denies change in hair, Denies change in pigmentation and Denies changing lesions Neurologic: Reports Abnormal speech present, Reports abnormal gait ( patient reports weakness), Denies behavioral changes, Denies confusion, Denies vertigo, Denies dizziness, Denies syncope, Denies loss of vision, Denies memory loss and Denies seizure-like activity Psychiatric: Psychiatric: Denies anxiety, Denies behavioral changes, Denies confusion, Denies depression and Denies memory loss Endocrine: Endocrine: Denies cold intolerance and Denies fatigue Hematologic/Lymphatic: Hematologic/Lymphatic: Denies easy bleeding and Denies easy bruising [facility] Past Medical History Medical History (Updated 04/11/20 @ 10:06 by Nila Barcenas MD) Acute respiratory failure Allergic rhinitis JERAMIE positive COPD (chronic obstructive pulmonary disease) Diabetes mellitus E coli bacteremia Heart disease Myocardial infarction MARLEN (obstructive sleep apnea) Right upper quadrant abdominal pain Family History Family History (Updated 04/11/20 @ 10:09 by Nila Barcenas MD) Father Lung disease Mother HTN (hypertension) Sister Lung disease Sister No problems noted. Sister No problems noted. Brother No problems noted. Brother No problems noted. Daughter No problems noted. Daughter No problems noted. Son No problems noted. Family history: reviewed and not pertinent Surgical History Surgical History (Updated 04/11/20 @ 10:06 by Nila Barcenas MD) H/O cardiac catheterization H/O hernia repair H/O thyroidectomy H/O: hysterectomy History of esophagogastroduodenoscopy (EGD) Social History Social History (Updated 04/11/20 @ 10:10 by Nila Barcenas MD) Household Members: Spouse Housing: Apartment Do you presently have visiting nurse or other home services: No Alcohol intake: never Smoking Status: Never smoker Smoked in Last 30 Days: No Use of substances other than those prescribed or required for medical reasons: No Currently Displaying Signs/Symptoms of Drug Intoxication Withdrawal: No Advance Directives: No Advance Directives Information Provided: Yes Do you have thoughts of harming others: None Do you have a plan to hurt others: No Plan service: No Current occupational status: unemployed Meds Allergies Allergy/AdvReac Type Severity Reaction Status Date / Time No Known Allergies Allergy Verified 04/11/20 10:10 Home Medications Medication Instructions Recorded Confirmed Type [id number] 1 cap PO QID cap 03/23/20 04/09/20 History 3,000-9,500-15,000 unit capsule,delayed releas omeprazole 40 mg capsule,delayed 40 mg PO DAILY 03/23/20 04/09/20 History release simethicone 180 mg capsule 180 mg PO QID PRN cap 03/23/20 04/09/20 History fluticasone 500 mcg-salmeterol 50 1 inh INHALATION BID 04/05/20 04/09/20 History mcg/dose blistr powdr for inhalation fluticasone propionate 50 1 spray INTRANASAL DAILY 04/05/20 04/09/20 History mcg/actuation nasal spray,suspension furosemide 20 mg tablet 20 mg PO DAILY 04/05/20 04/09/20 History levothyroxine 100 mcg tablet 100 mcg PO DAILY 04/05/20 04/09/20 History metformin 500 mg tablet 500 mg PO BID 04/05/20 04/09/20 History metoprolol tartrate 25 mg tablet 25 mg PO DAILY 04/05/20 04/09/20 History valsartan 160 mg tablet 160 mg PO DAILY 04/05/20 04/09/20 History Physical Exam Vital Signs: Vital Signs: Vital Signs Temp Pulse Resp BP Pulse Ox 04/11/20 09:34 78 145/78 H 04/11/20 07:23 98.6 F 78 20 145/78 H 96 04/11/20 03:05 98.6 F 88 20 135/75 96 04/11/20 00:00 98.1 F 79 18 128/71 98 04/10/20 19:54 98.7 F 72 18 119/63 96 04/10/20 16:00 98.2 F 78 20 135/67 97 04/10/20 11:20 97.3 F 69 18 100/58 L 95 Body Mass Index 33.0 Const: General: cooperative, healthy appearing, comfortable, no acute distress, well developed and alert; No confusion Orientation/consciousness: No confusion HENMT: Head: Yes normal to inspection, Yes normocephalic and Yes atraumatic Eyes: Sclerae: sclerae normal EOM: EOMs intact bilaterally Neck: Neck: Yes normal visual inspection, Yes full ROM, Yes no lymphadenopathy and Yes trachea midline Lymphatic: no lymphadenopathy noted Chest: Chest palpation & inspection: normal inspection of the chest Resp: Effort & Inspection: normal respiratory effort, able to speak in complete sentences, no audible wheezes ( occasional inspiratory), no cough and no use of accessory muscles Auscultation: wheezes inspiratory wheezes ( occasional) Cardio: Heart sounds: S1 normal heart sound present, S2 normal heart sound present, no gallops, no murmurs and no rubs GI: Inspection: No Abdominal wall edema, No distended and Yes scar ( lower midline well-healed surgical scar) Palpation (GI): Soft to palpation, nontender, no guarding, not rigid and hepatosplenomegaly present Percussion: Yes normal to percussion Skin: General skin exam: no rashes or lesions noted Neuro: General: patient oriented x3 and No confusion Cranial nerves: Yes CN's II-XII intact bilaterally Speech: Abnormal speech present Extrem: General: Yes normal to inspection, Yes full ROM, Yes no clubbing, cyanosis or edema, Yes no pedal edema and Yes no calf tenderness Results Labs Result diagrams: 04/10/20 05:46 04/10/20 05:46 Labs: Abnormal lab results 04/10/20 Range/Units 21:09 POC Glucose 123 H (60-115) mg/dL Urine 04/09/20 Range/Units 21:23 Urine Color RED Urine Appearance CLOUDY Urine pH 6.0 (5.0-8.0) Ur Specific [place] 1.015 (1.005-1.025) Urine Protein 1+ H (NEG-TRACE) MG/DL Urine Glucose (UA) NEG (NEG) MG/DL All other labs normal. Imaging Abdomen CT scan report/results: report reviewed and image reviewed Assessment and Plan (1) Gallstones: Status: Acute this is a 64-year-old lady who was admitted with what appears to be sepsis secondary to urinary source. Patient had gram-negative rods within the blood and given that she has a history of hepatitis C and cirrhosis there was a question of whether she had chronic cholecystitis. There is no evidence cholecystitis on CT scan. There are no findings such as pericholecystic fluid or inflammation of the gallbladder wall. There is evidence of a gallstone. Patient is asymptomatic. She denies any nausea vomiting is tolerating diet. She denies abdominal pain. A source from the gallbladder is less likely given these findings. Continue to treat for urinary sepsis. No evidence of cholecystitis currently. We will sign off please call with questions. I spent 45 minutes with this patient with greater than 50% coordinating care.
[2020-04-11 11:20] LABS: Glucose, Whole Blood 104 mg/dL (60-115)
[2020-04-11 16:56] LABS: Glucose, Whole Blood 79 mg/dL (60-115)
--- NOTE | 2020-04-11 17:12 | P.PNIM_ITS ---
Subjective Subjective Date of Service: 04/11/20 Interval History: patient resting in bed comfortably offers no acute complaints daughter at bedside history obtained via translator interpreter, no acute issues overnight as per patient she was having intermittent hematuria that has now resolved right-sided abdominal pain has also improved. Review of Systems General no headache no dizziness no fever chills. CVS no chest pain, no palpitation. Respiratory no cough, no respiratory distress. Gastrointestinal no nausea , no vomiting, no abdominal pain Physical Exam Vital Signs: Vital Signs: Vital Signs Temp Pulse Resp BP Pulse Ox 04/11/20 15:48 98.2 F 67 18 130/72 94 04/11/20 10:50 97.8 F 61 18 128/72 96 04/11/20 09:34 78 145/78 H 04/11/20 07:23 98.6 F 78 20 145/78 H 96 04/11/20 03:05 98.6 F 88 20 135/75 96 04/11/20 00:00 98.1 F 79 18 128/71 98 04/10/20 19:54 98.7 F 72 18 119/63 96 Body Mass Index 33.0 General patient resting comfortably in no acute distress. Neck is supple no JVD. CVS regular rate rhythm, Respiratory lungs clear to auscultation, no respiratory distress, no wheeze, no rhonchi. Gastrointestinal abdomen soft, mild right upper quadrant discomfort with palpation, bowel sounds audible, no guarding , no rigidity. Extremities no clubbing cyanosis or edema. Neuro nonfocal patient moving all 4 extremity speech clear. Skin no rash Objective Data Current Medications Generic Name Dose Route Start Last Admin Trade Name Nickq PRN Reason Stop Dose Admin Acetaminophen 650 mg 04/10/20 02:44 04/10/20 15:54 Acetaminophen 325 Mg Tablet PO 650 mg Q6H PRN Administration Pain, Mild (Pain Scale 1-3) Docusate Sodium 100 mg 04/10/20 02:44 Docusate Sodium 100 Mg Capsule PO DAILY PRN Constipation Lactated Ringer's 1,000 mls @ 100 mls/hr 04/10/20 04:00 04/11/20 12:16 Lr IVCONT 100 mls/hr .Q10H KOJO Administration Piperacillin Sod/Tazobactam 50 mls @ 100 mls/hr 04/10/20 13:00 10/27/20 16:29 Sod 3.375 gm/ Sodium Chloride IV Infused Q6H [facility] Infusion Insulin Human Lispro 0 unit 04/10/20 07:30 04/11/20 12:16 Insulin Lispro 100 Unit/Ml 3 Ml Vial SUBCUT Not Given QIDACHS [facility] Protocol Levothyroxine Sodium 100 mcg 04/10/20 06:00 04/11/20 05:53 Levothyroxine Sodium 100 Mcg Tablet PO 100 mcg DAILY@0600 [facility] Administration Metoprolol Tartrate 25 mg 04/10/20 09:00 04/11/20 09:34 Metoprolol Tartrate 25 Mg Tablet PO 25 mg DAILY [facility] Administration Protocol Non-Formulary Medication 1 cap 04/10/20 09:00 Mtglru-Nkujnyjv-Miowepy [Creon] PO QID KOJO Omeprazole 40 mg 04/10/20 09:00 04/11/20 09:34 Omeprazole 40 Mg Capsule.Dr PO 40 mg DAILY [facility] Administration Ondansetron HCl 4 mg 04/10/20 02:44 Ondansetron Hcl 4 Mg/2 Ml Vial IVPUSH Q8H PRN Nausea and Vomiting Pharmacy Consult 1 each 04/09/20 20:16 Consult Rx Perform Med Rec MISCELLANE ONCE PRN Consult order Simethicone 160 mg 04/10/20 03:11 Simethicone 80 Mg Tab.Chew PO QID PRN Indigestion/Gas Sodium Chloride 3 ml 04/10/20 02:44 04/11/20 14:43 0.9 % Sodium Chloride Flush 3 Ml Syringe IVFLUSH Not Given QSHIFT [facility] Labs CBC & Chem 7: 04/12/20 09:57 04/12/20 09:57 Microbiology Microbiology Results: Microbiology 04/09/20 20:46 Blood - Venous Blood Culture - Preliminary Gram negative vaishali 04/09/20 20:29 Blood - Venous Blood Culture - Preliminary Gram negative vaishali 04/09/20 21:43 Urine clean catch - Clean Catch Midstream Urine Culture - Final Assessment and Plan (1) Sepsis: Status: Acute (2) Urinary tract infection: Status: Acute (3) Hematuria: Status: Acute (4) Hypertension: Status: Acute (5) Hypothyroid: Status: Acute (6) Chronic hepatitis C: Status: Acute (7) Cirrhosis: Problem details: Status: Acute Assessment and Plan: 1. Sepsis secondary to UTI vs bilaray source, Gram Neg Bacteremia given hematuria and UA -- suspect urine source patient seen by Dr. Palomo she recommend to continue current antibiotic and follow final culture, patient evaluated by General surgery they found no evidence of acute cholecystitis, CT abdomen and abdominal ultrasound showed gallstones with no pericholecystic cystic fluid accumulation. 3. Cirrhosis LFTs downtrending possibly acute worsened due to infection 4. Hypoxia, history of copd,isolated reading x 1 on RA now 5. History of HTN bp stable continue metoprolol 6. History of hep c outpatient f/u, LFTs down trending 7. Hypothyroid synthroid Full Code DVT pptx, scd due to hematuria daughter bedside -- updated treatment plan
[2020-04-11 21:38] LABS: Glucose, Whole Blood 81 mg/dL (60-115)
[2020-04-12] VITALS (7 sets, daily range): BP systolic 134–163; BP diastolic 64–89; PULSE 64–90; RESP 16–18; TEMP 36.3–37.1; O2SAT 90–96; BMI 35.2
[2020-04-12] MEDS: Piperacillin Sodium/Tazobactam 3.375 GM in 0.9 % Sodium Chloride 50 ML IV ×2 (02:09→07:40)
[2020-04-12] MEDS: Levothyroxine Sodium 100 MCG TABLET PO (05:47)
[2020-04-12] MEDS: Lactated Ringers 1,000 ML 100 ML IVCONT ×2 (05:51→15:57)
[2020-04-12 07:41] LABS: Glucose, Whole Blood 82 mg/dL (60-115)
[2020-04-12] MEDS: Metoprolol Tartrate 25 MG TABLET PO (07:41)
[2020-04-12] MEDS: Omeprazole 40 MG CAPSULE.DR PO (07:41)
[2020-04-12] MEDS: levoFLOXacin/D5W 500 MG/100 ML PIGGYBACK 100 MG IV (09:52)
[2020-04-12 10:31] LABS: MANUAL DIFF FLAG NO
[2020-04-12 10:53] LABS: Basophils Percent Auto 0.2 % (0-2); Eosinophils Absolute Auto 0.1 X10*3/uL (0.0-0.4); Eosinophils Percent Auto 2.3 % (0-4); Hematocrit 34.3 % (37-47); Hemoglobin 11.3 g/dl (12.0-16.0); Imm Gran Abs Auto 0.01 X10*3/uL (0.00-0.03); Imm Gran Pct Auto 0.2 % (0.0-0.4); Lymphocytes Absolute Auto 0.8 X10*3/uL (1.2-4.9); Lymphocytes Percent Auto 15.2 % (20-40); Mean Corpuscular HGB Conc 32.9 g/dl (31.0-35.0); Mean Corpuscular Hemoglobin 27.8 pg (27.0-33.0); Mean Corpuscular Volume 84.3 fL (80-98); Monocytes Absolute Auto 0.2 X10*3/uL (0.1-1.2); Monocytes Percent Auto 4.6 % (2-11); Neutrophils Absolute Auto 4.1 X10*3/uL (2.0-8.3); Neutrophils Percent Auto 77.5 % (45-73); Red Blood Count 4.07 X10*6/uL (4.20-5.50); Red Cell Distribution Width 15.5 % (11.0-16.0); White Blood Count 5.3 X10*3/uL (4.8-10.8)
[2020-04-12 10:54] LABS: Platelet Count 66 X10*3/uL (160-400)
[2020-04-12 11:11] LABS: Anion Gap 13 (12-20); Blood Urea Nitrogen 10 mg/dL (9-16); Calcium 7.5 mg/dL (8.4-10.2); Carbon Dioxide 22 mmol/L (22-29); Chloride 106 mmol/L (96-108); Creatinine Clr Calc Pharmacy 93.7; Estimated Glomerular Filt Rate > 60; Glucose Random 204 mg/dL (60-115); Potassium 3.8 mmol/l (3.3-5.1); Sodium 137 mmol/L (135-145)
[2020-04-12 11:43] LABS: Glucose, Whole Blood 124 mg/dL (60-115)
--- NOTE | 2020-04-12 14:28 | MHC.CM.PN ---
DC goal continues to be for Patient to return home with no need for home/skilled services anticipated.Patient is receiving IV Levaquin r/t Sepsis, secondary to UTI. CM will continue to follow for dc planning and the possibility for need to adjust the dc plan.
[2020-04-12] MEDS: Acetaminophen 325 MG TABLET 650 MG PO (15:58)
[2020-04-12 16:35] LABS: Glucose, Whole Blood 105 mg/dL (60-115)
--- NOTE | 2020-04-12 16:41 | HO.PM.IMPN ---
Subjective Subjective Interval History: patient resting in bed comfortably offers no acute complaints, Denies dysuria, history obtained via mat worker, no acute issues overnight. General no headache no dizziness no fever chills. CVS no chest pain, no palpitation. Respiratory no cough no sputum production no respiratory distress. Gastrointestinal no nausea no vomiting, no abdominal pain Physical Exam Vital Signs: Vital Signs: Vital Signs Temp Pulse Resp BP Pulse Ox 04/12/20 15:28 97.6 F 74 16 145/89 H 95 04/12/20 11:32 98.2 F 64 18 134/69 93 04/12/20 07:41 72 136/76 04/12/20 07:07 98.2 F 72 18 136/76 91 L 04/12/20 03:53 97.3 F 72 18 146/64 H 96 04/12/20 00:00 98.7 F 82 18 142/86 H 96 04/11/20 20:00 98.8 F 81 18 158/84 H 92 Body Mass Index 35.2 General patient resting comfortably in no acute distress. Neck is supple no JVD. CVS regular rate rhythm, Respiratory lungs clear to auscultation, no respiratory distress, no wheeze, no rhonchi. Gastrointestinal abdomen soft, nontender , bowel sounds audible, no guarding , no rigidity. Extremities no clubbing cyanosis or edema. Neuro nonfocal patient moving all 4 extremity speech clear. Skin no rash Objective Data Current Medications Generic Name Dose Route Start Last Admin Trade Name Freq PRN Reason Stop Dose Admin Acetaminophen 650 mg 04/10/20 02:44 04/12/20 15:58 Acetaminophen 325 Mg Tablet PO 650 mg Q6H PRN Administration Pain, Mild (Pain Scale 1-3) Docusate Sodium 100 mg 04/10/20 02:44 Docusate Sodium 100 Mg Capsule PO DAILY PRN Constipation Lactated Ringer's 1,000 mls @ 100 mls/hr 04/10/20 04:00 04/12/20 15:57 Lr IVCONT 100 mls/hr .Q10H KO[facility] Administration Levofloxacin 500 mg in 100 mls @ 100 mls/hr 04/12/20 09:15 04/12/20 11:05 Levaquin IV Infused Q24H [facility] Infusion Insulin Human Lispro 0 unit 04/10/20 07:30 04/12/20 12:26 Insulin Lispro 100 Unit/Ml 3 Ml Vial SUBCUT Not Given QIDACHS [facility] Protocol Levothyroxine Sodium 100 mcg 04/10/20 06:00 04/12/20 05:47 Levothyroxine Sodium 100 Mcg Tablet PO 100 mcg DAILY@0600 [facility] Administration Metoprolol Tartrate 25 mg 04/10/20 09:00 04/12/20 07:41 Metoprolol Tartrate 25 Mg Tablet PO 25 mg DAILY [facility] Administration Protocol Non-Formulary Medication 1 cap 04/10/20 09:00 Hpqjlh-Osllvtly-Puhuixd [Creon] PO QID KOJO Omeprazole 40 mg 04/10/20 09:00 04/12/20 07:41 Omeprazole 40 Mg Capsule.Dr PO 40 mg DAILY [facility] Administration Ondansetron HCl 4 mg 04/10/20 02:44 Ondansetron Hcl 4 Mg/2 Ml Vial IVPUSH Q8H PRN Nausea and Vomiting Pharmacy Consult 1 each 04/09/20 20:16 Consult Rx Perform Med Rec MISCELLANE ONCE PRN Consult order Simethicone 160 mg 04/10/20 03:11 Simethicone 80 Mg Tab.Chew PO QID PRN Indigestion/Gas Sodium Chloride 3 ml 04/10/20 02:44 04/12/20 15:57 0.9 % Sodium Chloride Flush 3 Ml Syringe IVFLUSH Not Given QSHIFT [facility] Labs CBC & Chem 7: 04/12/20 09:57 04/12/20 09:57 Microbiology Microbiology Results: Microbiology 04/09/20 20:46 Blood - Venous Blood Culture - Final Escherichia coli 04/09/20 20:29 Blood - Venous Blood Culture - Final Escherichia coli 04/09/20 21:43 Urine clean catch - Clean Catch Midstream Urine Culture - Final Assessment and Plan (1) Sepsis: Status: Acute (2) Urinary tract infection: Status: Acute (3) Hematuria: Status: Acute (4) Hypertension: Status: Acute (5) Hypothyroid: Status: Acute (6) Chronic hepatitis C: Status: Acute (7) Cirrhosis: Problem details: Status: Acute Assessment and Plan: 1. Sepsis secondary to UTI vs bilaray source, Gram Neg Bacteremia urine culture grew E coli resistant to ampicillin therefore will discontinue IV Zosyn and place patient on IV Levaquin, case discussed with Dr. Radha Palomo she recommend to discharge patient home on by mouth Levaquin. follow CBC, if no further fever chills and if CBC downtrending the patient will be discharged home in next 24 hours. 3. Cirrhosis LFTs downtrending possibly acute worsening due to infection 4. Hypoxia, history of copd,isolated reading x 1 on RA now 5. History of HTN bp stable continue metoprolol 6. History of hep c outpatient f/u, LFTs down trending 7. Hypothyroid synthroid Full Code DVT pptx, scd due to hematuria
[2020-04-12 21:22] LABS: Glucose, Whole Blood 123 mg/dL (60-115)
[2020-04-13] VITALS: BP 171/89; PULSE 85; RESP 18; TEMP 36.1; O2SAT 96
[2020-04-13 04:00] VITALS: BP 156/85; PULSE 86; RESP 16; TEMP 36.1; O2SAT 90
[2020-04-13] MEDS: Levothyroxine Sodium 100 MCG TABLET PO (05:43)
[2020-04-13 06:00] VITALS: BMI 35.2
[2020-04-13 07:49] VITALS: BP 143/92; PULSE 84; RESP 18; TEMP 36.6; O2SAT 97
[2020-04-13 07:58] LABS: Glucose, Whole Blood 103 mg/dL (60-115)
[2020-04-13] MEDS: levoFLOXacin/D5W 500 MG/100 ML PIGGYBACK 100 MG IV (09:34)
[2020-04-13] MEDS: 0.9 % Sodium Chloride Flush 3 ML SYRINGE IVFLUSH (09:34)
[2020-04-13] MEDS: Omeprazole 40 MG CAPSULE.DR PO (09:34)
[2020-04-13] MEDS: Metoprolol Tartrate 25 MG TABLET PO (09:35)
[2020-04-13 11:11] VITALS: BP 125/71; PULSE 66; RESP 18; TEMP 36.6; O2SAT 97
[2020-04-13 11:33] LABS: Glucose, Whole Blood 115 mg/dL (60-115)
--- NOTE | 2020-04-13 11:42 | MHC.CM.PN ---
Per ROUNDS discussion, Patient will be medically cleared for dc to home today, no services.
--- NOTE | 2020-04-13 12:46 | PM.DS ---
DS: Providers Provider Date of admission: 04/09/20 23:22 Primary care physician: Niecy Lindsey MD Consults: 04/10/20 12:07 Consult to Infectious Diseases Routine Consulting Provider: Lou Palomo Reason for consultation: gram negative bacteremia 04/10/20 12:08 Consult to General Surgery Routine Consulting Provider: [facility] [place] General Surgeons Reason for consultation: Bacteremia, ? 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 Patient reports that she had a UTI about 15 days ago, which also presented as which she urea, she reports that she had UA done at her PCP and found UTI was given antibiotics which she finished 3 days ago. Patient reports that since finishing antibiotic she developed more hematuria, urgency, urinary frequency. She also has fever and chills. She has nausea with Few episodes of vomiting. She has generalized weakness and shaking. She otherwise has no chest pain, shortness of breath, no abdominal pain. On arrival to the ED hemodynamically stable with tachycardia, tachypnea, with a heart rate of 117 and respiratory rate of 32, labs are significant for normal WBC count, left shift, total bili of 3.5, direct bili of 1.6, AST of 144, ALT 73, alk-phos of 160 area that is positive for blood, nitrite, WBC abdominal CT showed upper abdominal venous collaterals on rate irregular liver contour concerning for liver cirrhosis, abdominal wall hernias with multiple small bowel loops closer grade gated with no evidence of obstruction. ABD US showed gallstones with no evidence of cholecystitis Past medical history: Hypertension, diabetes, hypothyroidism, GERD, liver cirrhosis, COPD, history of coronary artery disease past surgical history: Thyroidectomy, hysterectomy, hernia repair hospital course 1. Sepsis secondary to E coli UTI features of sepsis resolved patient initially treated with IV Zosyn however E coli was resistant to ampicillin therefore placed on Levaquin patient followed by Dr. Radha Palomo and is now being discharged home for total 2 weeks of Levaquin patient WBC count improved she has had no recurrent bout of hematuria and no further bout of fever and chills, patient was also evaluated by General surgery for possibility of cholecystitis but abdominal ultrasound as well as examination was not consistent with acute cholecystitis. 3. Cirrhosis LFTs downtrending possibly acute worsening due to infection . 4. Hypoxia, history of copd,isolated reading x 1 on RA now . 5. History of HTN bp stable continue home medication 6. History of hep c outpatient f/u, LFTs down trending 7. Hypothyroid continue synthroid Time Spent with Patient Time attestation: Total time spent providing and/or coordinating discharge services: Physical Exam Vital Signs: Vital Signs: Vital Signs Temp Pulse Resp BP Pulse Ox 04/13/20 11:11 97.8 F 66 18 125/71 97 04/13/20 07:49 97.9 F 84 18 143/92 H 97 04/13/20 04:00 97 F 86 16 156/85 H 90 L 04/13/20 00:00 97 F 85 18 171/89 H 96 04/12/20 19:38 97.6 F 90 16 163/85 H 90 L 04/12/20 15:28 97.6 F 74 16 145/89 H 95 Body Mass Index 35.2 General patient resting comfortably in no acute distress. Neck is supple no JVD. CVS regular rate rhythm, Respiratory lungs clear to auscultation, no respiratory distress, no wheeze, no rhonchi. Gastrointestinal abdomen soft, nontender, bowel sounds audible Extremities no clubbing, cyanosis or edema. Neuro nonfocal Skin no rash DS: Data Data Completed and Pending Labs on day of discharge: Labs from last 24 hours 04/13/20 04/13/20 04/12/20 11:13 07:49 21:18 POC Glucose 115 103 123 H 04/12/20 16:29 POC Glucose 105 Discharge Plan Discharge Patient Disposition: Home, Self-Care Referrals: Niecy Mccoy MD [Primary Care Provider] - Discharge Medications: New levofloxacin 500 mg tablet 500 mg PO DAILY 10 Days Qty: 10 RF: 0 Continued fluticasone propionate [Flonase Allergy Relief] 50 mcg/actuation spray,suspension 1 spray intranasal DAILY RF: 0 dicyclomine 20 mg tablet 20 mg PO TID Qty: 90 RF: 3 simethicone [Gas Relief (simethicone)] 180 mg capsule 180 mg PO QID PRN (Reason: Indigestion) RF: 0 omeprazole 40 mg capsule,delayed release(DR/EC) 40 mg PO DAILY RF: 0 Creon 3,000-9,500- 15,000 unit capsule,delayed release(DR/EC) 1 cap PO QID RF: 0 metformin 500 mg tablet 500 mg PO BID RF: 0 valsartan 160 mg tablet 160 mg PO DAILY RF: 0 levothyroxine 100 mcg tablet 100 mcg PO DAILY RF: 0 furosemide 20 mg tablet 20 mg PO DAILY RF: 0 fluticasone propion-salmeterol 500-50 mcg/dose blister with device 1 inh inhalation BID RF: 0 metoprolol tartrate 25 mg tablet 25 mg PO DAILY RF: 0 Discharge Orders: Discharge Order (Routine); Ordered 04/13/20 Ordered By: Rickie Hess Diet: regular diet Activity on Discharge: As tolerated Visit Report Forms: Patient Portal Discharge page Care Plan Goals: Close outpatient follow-up with PCP Health Concerns: finish course of antibiotic as prescribed Plan of Treatment: outpatient follow-up with PCP in next 1-2 weeks continue all other home medication
== END 2020-04-13 15:28 | disposition home or self-care (01) | DRG 720 ==
LOC: HO.ED 23:48 → HO.IMC 04-10 00:04
PROVIDERS: Family Medicine; Admitting Provider Internal Medicine; Emergency Provider Emergency Medicine; PCP Internal Medicine; Visit Provider Hospitalist
DX: A41.9 Sepsis, unspecified organism (principal); K81.1 Chronic cholecystitis; N39.0 Urinary tract infection, site not specified; K74.60 Unspecified cirrhosis of liver; E03.9 Hypothyroidism, unspecified; I25.2 Old myocardial infarction; E11.9 Type 2 diabetes mellitus without complications; B96.20 Unspecified Escherichia coli [E. coli] as the cause of diseases classified elsewhere; Z16.11 Resistance to penicillins; K21.9 Gastro-esophageal reflux disease without esophagitis; R31.9 Hematuria, unspecified; R09.02 Hypoxemia; Z20.828 Contact with and (suspected) exposure to other viral communicable diseases; Z86.19 Personal history of other infectious and parasitic diseases; Z79.51 Long term (current) use of inhaled steroids; Z79.890 Hormone replacement therapy; Z79.899 Other long term (current) drug therapy
CPT/HCPCS: 36415; 71045; 74176; 76705; 80048; 80076; 81001; 82272; 82947; 83605; 83690; 83880; 85007; 85025; 85027; 87040; 87077; 87086; 87186; 87635; 93005; 96365; 99285; J1956; J2543

== ENCOUNTER → 2020-05-02 08:27 | Outpatient (REF) | payer MEDICAID, SELFPAY ==
--- NOTE | 2020-05-02 08:30 | CA_ITS ---
Acquisition Time: 2020-05-02 08:45:32 Total Exercise Time: 00:02:00 Test Indications: Dyspnea Medications: LEVOQUIN OMEPRAZOLE CREON METOPROLOL FUROSEMIDE METFORMIN VALSARTAN Protocol: LEXISCAN Max HR: 093 BPM 60% of Pred: 154 BPM Max BP: 126/082 mmHG Max Work Load: 1.0 METS Pharmacological stress test using Lexiscan while sitting and kicking her feet. Pt tolerated well, sx of nausea and mild SOB reversed with Aminophyline 75 mg. IV. Denies any other anginal symptoms. EKG Nondiagnostic for ischemia. Nuclear images to follow. Normotensive response to test. Test reviewed with Dr. Patel. Referred By: Tacos Woodard Overread By: Emma Hurley
--- NOTE | 2020-05-02 08:51 | NM_ITS ---
Myocardial perfusion study Indication: Chest pain with heart failure syndrome to evaluate for myocardial ischemia Technique: The patient was brought in for a Lexiscan perfusion study on 05/02/2020. Patient performed low-level exercise and was injected 0.4 mg of Lexiscan intravenously. Within a minute of injection, 30 mCi of sestamibi was given intravenously. Images were obtained using the SPECT gamma camera interlaced with the gating device. Images were obtained in supine position. Resting perfusion study was performed on 05/03/2020. Patient was administered 30 mCi of sestamibi intravenously at rest. Images were then obtained in supine position. Images obtained with and without CT attenuation. Total DLP 71 MGY-CM. Images were processed with the software and compared side to side in short axis, horizontal long axis and vertical long axis views. Findings: The stress perfusion study showed non attenuated images show normal uptake of radiotracer in all segments of LV myocardium. Attenuation corrected images show minimal thinning of the apex of the LV myocardium. There is suggestion of left ventricle hypertrophy. The gated study shows normal LV systolic function with calculated LVEF of 72%. LV cavity is normal in size. The gated study shows normal systolic wall thickening and contraction of segments. Resting study shows no change in perfusion pattern compared to stress perfusion study. Gating at rest reveals normal systolic wall motion with visually estimated ejection fraction at greater than 60 %. The findings are consistent with normal myocardial perfusion. NM/NM cardiolite stress test Impression: 1. Myocardial perfusion imaging study shows normal myocardial perfusion 2. Gated LVEF is 72% 3. Transient ischemic dilatation not present EKG is nondiagnostic for ischemia
== END ==
LOC: HO.CARD 08:27
PROVIDERS: PCP Internal Medicine; Visit Provider Internal Medicine Cardiovascular Disease
DX: I50.810 Right heart failure, unspecified (principal); R07.89 Other chest pain; J44.9 Chronic obstructive pulmonary disease, unspecified
CPT/HCPCS: 78452; 93017; A9500; J0280; J2785

== ENCOUNTER → 2020-05-04 14:26 | Outpatient (BNVA) | payer MEDICAID, SELFPAY | PROVIDERS: PCP Internal Medicine; Visit Provider Nurse Practitioner | DX: Z76.89 Persons encountering health services in other specified circumstances (principal) ==

== ENCOUNTER → 2020-05-19 14:25 | Outpatient (BNVA) | payer MEDICAID, SELFPAY | PROVIDERS: PCP Internal Medicine; Referring Provider Internal Medicine; Visit Provider Student in an Organized Health Care Education/Training Program | DX: Z13.89 Encounter for screening for other disorder (principal) ==

== ENCOUNTER 2020-05-26 08:58 | Outpatient (REF) | payer MEDICAID, SELFPAY ==
--- NOTE | 2020-05-26 09:06 | XR_ITS ---
EXAMINATION: BILATERAL HAND X-RAY CLINICAL INFORMATION: Pain COMPARISON: None TECHNIQUE: 3 views of each hand FINDINGS: Bone alignment is normal. No fracture or dislocation is seen. There are small osteophytes at the IP joints. Joint spaces are otherwise normal. No erosions are seen. Soft tissues are normal. 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
--- NOTE | 2020-05-26 09:06 | XR_ITS ---
EXAMINATION: BILATERAL HAND X-RAY CLINICAL INFORMATION: Pain COMPARISON: None TECHNIQUE: 3 views of each hand FINDINGS: Bone alignment is normal. No fracture or dislocation is seen. There are small osteophytes at the IP joints. Joint spaces are otherwise normal. No erosions are seen. Soft tissues are normal. 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
== END 2020-05-26 08:59 | disposition home or self-care (01) ==
LOC: HO.HMGCX 08:58
PROVIDERS: PCP Internal Medicine; Visit Provider Student in an Organized Health Care Education/Training Program
DX: M79.642 Pain in left hand (principal); M79.641 Pain in right hand
CPT/HCPCS: 73130

== ENCOUNTER 2020-05-29 08:29 | Outpatient (REF) | payer MEDICAID, SELFPAY ==
[2020-05-29 11:12] LABS: MANUAL DIFF FLAG NO
[2020-05-29 11:34] LABS: Estimated Average Glucose 91 mg/dL; Hemoglobin A1c % 4.8 %
[2020-05-29 11:51] LABS: Basophils Percent Auto 0.2 % (0-2); Eosinophils Absolute Auto 0.1 X10*3/uL (0.0-0.4); Eosinophils Percent Auto 1.9 % (0-4); Hemoglobin 12.9 g/dl (12.0-16.0); Imm Gran Abs Auto 0.01 X10*3/uL (0.00-0.03); Imm Gran Pct Auto 0.2 % (0.0-0.4); Lymphocytes Absolute Auto 1.1 X10*3/uL (1.2-4.9); Lymphocytes Percent Auto 21.6 % (20-40); Mean Corpuscular HGB Conc 32.3 g/dl (31.0-35.0); Mean Corpuscular Hemoglobin 27.1 pg (27.0-33.0); Monocytes Absolute Auto 0.2 X10*3/uL (0.1-1.2); Monocytes Percent Auto 4.1 % (2-11); Neutrophils Absolute Auto 3.5 X10*3/uL (2.0-8.3); Platelet Count 122 X10*3/uL (160-400); Red Blood Count 4.76 X10*6/uL (4.20-5.50); Red Cell Distribution Width 16.4 % (11.0-16.0); White Blood Count 4.9 X10*3/uL (4.8-10.8)
[2020-05-29 11:54] LABS: Glucose Urine UA NEG (NEG); Leukocyte Esterase Urine NEG (NEG); Nitrite Urine NEG (NEG); Specific Gravity - Urine 1.015 (1.005-1.025); Urine Blood NEG (NEG); Urine Ketones NEG (NEG); Urine Protein NEG (NEG-TRACE)
[2020-05-29 12:02] LABS: Anion Gap 15 (12-20); Blood Urea Nitrogen 15 mg/dL (9-16); Calcium 8.9 mg/dL (8.4-10.2); Carbon Dioxide 24 mmol/L (22-29); Chloride 107 mmol/L (96-108); Cholesterol 150 mg/dL; Estimated Glomerular Filt Rate > 60; Glucose Fasting 90 mg/dL (60-99); HDL Cholesterol 61 mg/dL; LDL Cholesterol Calculated 80 mg/dl; Potassium 3.9 mmol/l (3.3-5.1); Sodium 142 mmol/L (135-145); Triglycerides 46 mg/dL
[2020-05-29 12:03] LABS: Appearance Urine CLEAR; Color Urine YELLOW
[2020-05-29 12:08] LABS: TSH reflex Free T4 0.95 mIU/mL (0.32-4.0)
[2020-05-29 12:47] LABS: RBC Urine 0 /HPF (0); Squamous Epithelial Cell Urine TRACE /LPF; WBC Urine 0-2 /HPF (0-4)
--- NOTE | 2020-05-29 14:51 | PFT_ITS ---
FLOWS: FEV1 of 55% of predicted at 1.42 L. FVC 61% of predicted at 2.02 L. FEV1 to FVC ratio of 0.71. No bronchodilator response. LUNG VOLUMES: Total lung capacity 75% of predicted at 4.02 L. Residual volume 87% of predicted at 1.93 L. Slow vital capacity 66% of predicted at 2.08 L. Expiratory reserve volume 30% of predicted at 0.25 L. Diffusion capacity is severely decreased, diffusion capacity adjust to being moderately decreased after correction for alveolar ventilation. IMPRESSION: Mild to moderate restrictive ventilatory defect. No bronchodilator response. Increased expiratory reserve volume suggests extrathoracic restriction likely secondary to abdominal obesity. Decreased diffusion capacity suggests emphysema. Dudley Granger MD AP/MODL / [id number]
[2020-05-30 11:17] LABS: Thyroglobulin Antibodies <1 IU/mL (< or = 1); Thyroid Peroxidase Antibodies 1 IU/mL (<9)
[2020-05-31 15:32] LABS: Anti DNA DS Antibody 5 IU/mL; Antibody to SS-A Antigen <1.0 NEG AI (<1.0 NEG); Antibody to SS-B Antigen <1.0 NEG AI (<1.0 NEG); SM/Ribonucleoprotein Ab <1.0 NEG AI (<1.0 NEG); Smith Protein <1.0 NEG AI (<1.0 NEG)
[2020-05-31 18:38] LABS: Complement C3 107 mg/dL (83-193)
== END 2020-05-29 08:30 | disposition home or self-care (01) ==
LOC: HO.RESP 08:29
PROVIDERS: Student in an Organized Health Care Education/Training Program; PCP Internal Medicine; Referring Provider Nurse Practitioner Family; Visit Provider Internal Medicine
DX: J44.9 Chronic obstructive pulmonary disease, unspecified (principal); R76.8 Other specified abnormal immunological findings in serum; J45.991 Cough variant asthma; E13.9 Other specified diabetes mellitus without complications; E78.00 Pure hypercholesterolemia, unspecified; E03.9 Hypothyroidism, unspecified
CPT/HCPCS: 36415; 80048; 80061; 81001; 83036; 84443; 85025; 86160; 86225; 86235; 86376; 86800; 94060; 94727; 94729

== ENCOUNTER → 2020-06-01 14:25 | Outpatient (BNVA) | payer MEDICAID, SELFPAY | PROVIDERS: PCP Internal Medicine; Visit Provider Internal Medicine Cardiovascular Disease | DX: Z76.89 Persons encountering health services in other specified circumstances (principal) ==

== ENCOUNTER 2020-06-02 09:21 | Outpatient (REF) | payer MEDICAID, SELFPAY ==
--- NOTE | 2020-06-02 | MM_ITS ---
EXAMINATION: MM SCREENING DIGITAL BREAST TOMOSYNTHESIS, BILATERAL CLINICAL INFORMATION: Screening. Asymptomatic. The lifetime risk of breast cancer based on the Tyrer-Cuzick Model is 4%. COMPARISON: Mammography: 05/28/2019, 05/22/2018 TECHNIQUE: Digital breast tomosynthesis is performed in both the craniocaudal and mediolateral oblique views along with computer-aided detection (CAD). Synthesized 2D images are generated from the tomosynthesis. FINDINGS: There are scattered areas of fibroglandular density (ACR BI-RADS breast composition Category b). There are no significant masses, abnormal calcifications, or other abnormalities. Biopsy clip marker again noted right breast 12:00 position. Parenchymal pattern is similar to prior studies. MM/MM tomosynthesis screening BI IMPRESSION: No mammographic evidence of malignancy. ASSESSMENT: BI-RADS 1: Negative RECOMMENDATION: Routine annual mammography screening. This patient's information was entered into a reminder system with a target due date for their next mammogram.
== END 2020-06-02 09:22 | disposition home or self-care (01) ==
LOC: HO.MAMMO 09:21
PROVIDERS: PCP Internal Medicine; Visit Provider Internal Medicine
DX: Z12.31 Encounter for screening mammogram for malignant neoplasm of breast (principal)
CPT/HCPCS: 77063; 77067

== ENCOUNTER → 2020-06-07 15:44 | Outpatient (BNVA) | payer MEDICAID, SELFPAY | PROVIDERS: PCP Internal Medicine; Visit Provider Internal Medicine | DX: J45.991 Cough variant asthma (principal); R07.89 Other chest pain; J44.9 Chronic obstructive pulmonary disease, unspecified | CPT/HCPCS: 99212 ==

== ENCOUNTER → 2020-06-14 14:08 | Outpatient (REF) | payer MEDICAID, SELFPAY ==
--- NOTE | 2020-06-14 14:13 | CA_ITS ---
Transthoracic Echocardiogram Patient (Last, First, Middle): Larissa Howell, Javier Gender: Female Date of : 1955 Age: 64 Procedure Date: 06/14/2020 Procedure Type: Transthoracic Echocardiogram Location: OP Height: 167.64 cm Weight: 88.45 kg BSA: 1.98 m2 Heart Rate: bpm BP: 140 / 80 mmHg Cigarette And Filter Chief Inspector: AMEE Referring MD: Tacos Woodard MD Symptoms: I50.810 - Right heart failure, unspecified Study Quality: Fair ECG Rhythm: Sinus Conclusions: - The left ventricular systolic function is hyperdynamic. The visually estimated ejection fraction is >70%. - Small intraventricular and LVOT gradient with increasing Valsalva but no evidence of obstruction. - Mildly increased right ventricular cavity size. - No obvious valvular pathology seen on this study. - Mild pulmonary hypertension is present. Findings Procedure Information Contrast agent, definity, is being given per protocol without apparent complications. Left Ventricle Normal left ventricular cavity size. There is mildly increased left ventricular wall thickness. The left ventricular systolic function is hyperdynamic. The visually estimated ejection fraction is >70%. There is no evidence of regional wall motion abnormalities. E/E prime ratio is between 8 and 15 consistent with indeterminate filling pressures. Evidence suggests grade I (mild) diastolic dysfunction. Small intraventricular and LVOT gradient with increasing Valsalva but no evidence of obstruction. Right Ventricle Mildly increased right ventricular cavity size. There is normal right ventricular systolic function. Atria The left atrium is normal in size. The right atrium is normal in size. Aortic Valve There is a normal trileaflet aortic valve. There is no aortic valve stenosis. There is trace (trivial) aortic valve regurgitation. Mitral Valve There is mild mitral annular calcification. There is trace mitral valve regurgitation. There is no mitral valve stenosis. Pulmonic Valve The pulmonic valve was not well visualized. Tricuspid Valve Normal tricuspid valve structure. There is trace tricuspid valve regurgitation. The right ventricular systolic pressure is 36 mmHg. Mild pulmonary hypertension is present. Great Vessels The aortic annulus, sinuses of valsalva, and asc aorta are normal in size. Venous The inferior vena cava is normal in size and collapses greater than 50% with inspiration. Pericardium/Pleural There is no evidence of pericardial effusion. Prior Study Comparison Changes noted compared to prior study dated: 01/26/2019. Right ventricular size seems smaller than previously reported. Pulmonary artery pressure slightly higher. Recommendations, Care & Conclusions No obvious valvular pathology seen on this study. Measurements 2D Linear Measurements IVSd: 1.12 0.6-0.9/0.6-1.0 cm LVIDd: 4.27 3.9-5.3/4.2-5.9 cm LVIDd Index: 2.16 2.4-3.2/2.2-3.1 cm/m2 LVIDs: 2.61 2.0-3.6 cm LVPWd: 1.13 0.7-1.1 cm Ao Root: 3.30 2.1-3.5 cm LA Diam: 4.00 2.7-3.8/3.0-4.0 cm LAIDs Index: 2.02 1.5-2.3 cm/m2 LV Mass: 207.29 67-162/88-224 g LV Mass Index: 104.69 43-95/49-115 g/m2 LVOT Diam: 2.00 3.0+(-)1.3 cm 2D Systolic Function EF 4C: 79.80 >55% EF 2C: 71.70 >55% EF BiP: 75.40 >55% Mitral Valve MV Pk E: 0.87 MV PK A: 0.95 MV Decel Time: 264.00 E/A: 0.90 E'Lateral: 9.09 E'Medial: 4.45 E/E' Med: 19.40 E/E' Lat: 9.50 PHT: 77.00 MVA PHT: 2.86 Decel Amador: 3.27 Aortic Valve AoV Pk Raheem: 1.95 AoV Mn Raheem: 1.33 AoV VTI: 0.40 AoV Pk Grad: 15.00 Aov Mn Grad: 8.00 ELTON Cont.VTI: 2.45 LVOT LVOT Pk Raheem: 1.54 LVOT Mn Raheem: 1.16 LVOT VTI: 0.31 LVOT Pk Grad: 9.00 LVOT Mn Grad: 6.00 LVOT Diam: 2.00 LVOT Area: 3.14 Diastolic Function MV Pk E: 0.87 MV Pk A: 0.95 E/A: 0.90 E'Medial: 4.45 E/E' Med: 19.40 E' Laterial: 9.09 E/E' Lat: 9.50 Tricuspid Valve TR Pk Raheem: 2.89 TR Pk Grad: 33.00 RA Press: 3.00 RVSP: 36.00 Great Vessels Aorta Ao Root-2D: 3.30 2.0-3.7 cm Ao Asc: 3.30 2.1-3.4 cm Ao Arch: 2.50 Updated in Other Vendor System with Status of Final Laz Patel MD electronically signed on 06/17/2020 12:32:55 PM with status of Final
== END ==
LOC: HO.CARD 14:08
PROVIDERS: PCP Internal Medicine; Visit Provider Internal Medicine Cardiovascular Disease
DX: I27.20 Pulmonary hypertension, unspecified (principal); I50.810 Right heart failure, unspecified; I51.7 Cardiomegaly
CPT/HCPCS: 93306; Q9957

== ENCOUNTER → 2020-06-30 14:21 | Outpatient (BNVA) | payer MEDICAID, SELFPAY | PROVIDERS: PCP Internal Medicine; Visit Provider Student in an Organized Health Care Education/Training Program | DX: Z76.89 Persons encountering health services in other specified circumstances (principal) ==

== ENCOUNTER → 2020-08-01 13:28 | Outpatient (BNVA) | payer MEDICAID, SELFPAY | PROVIDERS: PCP Internal Medicine; Visit Provider Nurse Practitioner ==

== ENCOUNTER 2020-08-07 11:20 | Outpatient (REF) | payer MEDICAID, SELFPAY | END 2020-08-07 11:21 | disposition home or self-care (01) | LOC: HO.LAB 11:20 | PROVIDERS: PCP Internal Medicine; Visit Provider Internal Medicine | DX: Z20.822 Contact with and (suspected) exposure to COVID-19 (principal) | CPT/HCPCS: 36415; C9803; U0003; U0005 ==

== ENCOUNTER → 2020-08-18 08:04 | Outpatient (BNVA) | payer MEDICAID, SELFPAY | PROVIDERS: PCP Internal Medicine; Visit Provider Internal Medicine Endocrinology, Diabetes & Metabolism ==

== ENCOUNTER → 2020-08-24 13:55 | Outpatient (BNVA) | payer MEDICAID, SELFPAY | PROVIDERS: PCP Internal Medicine; Visit Provider Internal Medicine Cardiovascular Disease | DX: I50.810 Right heart failure, unspecified (principal); I27.20 Pulmonary hypertension, unspecified | CPT/HCPCS: 99212 ==

== ENCOUNTER → 2020-09-04 11:51 | Outpatient (BNVA) | payer MEDICAID, SELFPAY | PROVIDERS: PCP Internal Medicine; Visit Provider Internal Medicine | DX: J44.9 Chronic obstructive pulmonary disease, unspecified (principal); G47.33 Obstructive sleep apnea (adult) (pediatric); J30.9 Allergic rhinitis, unspecified; Z79.899 Other long term (current) drug therapy | CPT/HCPCS: 99212 ==

== ENCOUNTER 2020-10-04 08:04 | Outpatient (REF) | payer MEDICAID, SELFPAY ==
[2020-10-04 11:47] LABS: Estimated Average Glucose 97 mg/dL
[2020-10-04 11:48] LABS: Creatinine Urine 86.12 mg/dL; Microalbum/Creatinine Ratio Ur 90.5 ug/mg cr
[2020-10-04 11:55] LABS: Alanine Aminotransferase 25 U/L (0-31); Albumin Level 3.8 g/dL (3.5-5.0); Alkaline Phosphatase 103 U/L (39-117); Anion Gap 15 (12-20); Aspartate Amino Transferase 39 U/L (5-31); Bilirubin Total 1.5 mg/dL (0.0-1.0); Blood Urea Nitrogen 14 mg/dL (9-16); Calcium 9.7 mg/dL (8.4-10.2); Carbon Dioxide 23 mmol/L (22-29); Chloride 106 mmol/L (96-108); Cholesterol 176 mg/dL; Estimated Glomerular Filt Rate > 60; Glucose Fasting 97 mg/dL (60-99); HDL Cholesterol 71 mg/dL; LDL Cholesterol Calculated 94 mg/dl; Potassium 3.9 mmol/L (3.3-5.1); Sodium 140 mmol/L (135-145); Total Protein 7.2 g/dL (6.5-8.0); Triglycerides 57 mg/dL
[2020-10-04 12:18] LABS: Free T4 (Free Thyroxine) 1.37 ng/dL (0.71-1.85); Thyroid Stimulating Hormone 1.19 uIU/mL (0.32-4.0)
[2020-10-04 12:50] LABS: Vitamin B12 896 pg/mL (200-900)
[2020-10-05 07:41] LABS: LDL Cholesterol Direct 86 mg/dL (<100)
== END 2020-10-04 08:05 | disposition home or self-care (01) ==
LOC: HO.HMGCLDS 08:04
PROVIDERS: PCP Internal Medicine; Visit Provider Internal Medicine Endocrinology, Diabetes & Metabolism
DX: E13.9 Other specified diabetes mellitus without complications (principal)
CPT/HCPCS: 36415; 80053; 80061; 82043; 82607; 83036; 83721; 84439; 84443

== ENCOUNTER → 2020-10-16 11:29 | Outpatient (BNVA) | payer MEDICAID, SELFPAY | PROVIDERS: PCP Internal Medicine; Visit Provider Nurse Practitioner ==

== ENCOUNTER → 2020-11-08 11:30 | Outpatient (BNVA) | payer MEDICAID, SELFPAY | PROVIDERS: PCP Internal Medicine; Referring Provider Internal Medicine; Visit Provider Surgery | DX: K80.20 Calculus of gallbladder without cholecystitis without obstruction (principal); K74.60 Unspecified cirrhosis of liver | CPT/HCPCS: 99202 ==

== ENCOUNTER 2020-12-22 08:00 | Outpatient (REF) | payer MEDICAID, SELFPAY ==
[2020-12-22 11:49] LABS: B Type Natriuretic Peptide 75 pg/mL (<100)
[2020-12-22 11:59] LABS: Creatinine Urine 101.81 mg/dL; Microalbum/Creatinine Ratio Ur 11.7 ug/mg cr
[2020-12-22 12:08] LABS: TSH reflex Free T4 0.57 uIU/mL (0.32-4.0)
[2020-12-22 12:10] LABS: Alanine Aminotransferase 22 U/L (0-31); Albumin Level 3.6 g/dL (3.5-5.0); Alkaline Phosphatase 93 U/L (39-117); Anion Gap 15 (12-20); Aspartate Amino Transferase 40 U/L (5-31); Bilirubin Total 1.7 mg/dL (0.0-1.0); Blood Urea Nitrogen 11 mg/dL (9-16); Calcium 9.2 mg/dL (8.4-10.2); Carbon Dioxide 22 mmol/L (22-29); Chloride 108 mmol/L (96-108); Cholesterol 157 mg/dL; Estimated Glomerular Filt Rate > 60; Glucose Fasting 100 mg/dL (60-99); HDL Cholesterol 59 mg/dL; LDL Cholesterol Calculated 88 mg/dl; Sodium 141 mmol/L (135-145); Total Protein 6.9 g/dL (6.5-8.0); Triglycerides 53 mg/dL
== END 2020-12-22 08:01 | disposition home or self-care (01) ==
LOC: HO.HMGCLDS 08:00
PROVIDERS: PCP Internal Medicine; Visit Provider Internal Medicine
DX: I50.810 Right heart failure, unspecified (principal); E78.00 Pure hypercholesterolemia, unspecified; E78.5 Hyperlipidemia, unspecified; E13.9 Other specified diabetes mellitus without complications; E03.9 Hypothyroidism, unspecified
CPT/HCPCS: 36415; 80053; 80061; 82043; 83880; 84443

== ENCOUNTER → 2021-01-18 13:10 | Outpatient (BNVA) | payer MEDICAID, SELFPAY | PROVIDERS: Visit Provider Nurse Practitioner ==

== ENCOUNTER → 2021-01-25 15:39 | Outpatient (BNVA) | payer MEDICAID, SELFPAY | PROVIDERS: PCP Internal Medicine; Visit Provider Internal Medicine | DX: G47.33 Obstructive sleep apnea (adult) (pediatric) (principal); J44.9 Chronic obstructive pulmonary disease, unspecified; J30.9 Allergic rhinitis, unspecified; I27.20 Pulmonary hypertension, unspecified; R09.02 Hypoxemia | CPT/HCPCS: 99212 ==

== ENCOUNTER 2021-02-01 15:49 | Outpatient (REF) | payer MEDICAID, SELFPAY ==
[2021-02-01 18:13] LABS: Glucose Urine UA NEG (NEG); Leukocyte Esterase Urine NEG (NEG); Nitrite Urine NEG (NEG); Specific Gravity - Urine 1.015 (1.005-1.025); UACC Culture Trigger NO; Urine Blood 3+ (NEG); Urine Ketones NEG (NEG); Urine Protein TRACE MG/DL (NEG-TRACE)
[2021-02-01 18:17] LABS: Appearance Urine CLOUDY; Color Urine AMBER
[2021-02-01 18:24] LABS: Bacteria Urine 1+ /LPF; RBC Urine TNTC /HPF (0); Squamous Epithelial Cell Urine 1+ /LPF; WBC Urine 0-2 /HPF (0-4)
== END 2021-02-01 15:50 | disposition home or self-care (01) ==
LOC: HO.LAB 15:49
PROVIDERS: PCP Internal Medicine; Visit Provider Internal Medicine
DX: R30.0 Dysuria (principal)
CPT/HCPCS: 81001

== ENCOUNTER → 2021-02-15 14:12 | Outpatient (BNVA) | payer MEDICAID, SELFPAY | PROVIDERS: PCP Internal Medicine; Referring Provider Internal Medicine; Visit Provider Internal Medicine Cardiovascular Disease | DX: I50.812 Chronic right heart failure (principal); I27.20 Pulmonary hypertension, unspecified | CPT/HCPCS: 99212 ==

== ENCOUNTER → 2021-02-28 15:49 | Outpatient (BNVA) | payer MEDICAID, SELFPAY | PROVIDERS: PCP Internal Medicine; Visit Provider Internal Medicine | DX: J44.9 Chronic obstructive pulmonary disease, unspecified (principal); J30.9 Allergic rhinitis, unspecified; G47.33 Obstructive sleep apnea (adult) (pediatric); E11.21 Type 2 diabetes mellitus with diabetic nephropathy; E78.00 Pure hypercholesterolemia, unspecified; E78.5 Hyperlipidemia, unspecified; E03.9 Hypothyroidism, unspecified; I10 Essential (primary) hypertension; Z98.890 Other specified postprocedural states; Z88.8 Allergy status to other drugs, medicaments and biological substances; Z79.84 Long term (current) use of oral hypoglycemic drugs; Z99.81 Dependence on supplemental oxygen; Z79.899 Other long term (current) drug therapy | CPT/HCPCS: 99212 ==

== ENCOUNTER 2021-04-23 08:18 | Outpatient (REF) | payer MEDICAID, SELFPAY ==
[2021-04-23 11:24] LABS: MANUAL DIFF FLAG NO
[2021-04-23 11:49] LABS: Appearance Urine CLEAR; Color Urine YELLOW; Glucose Urine UA NEG (NEG); Leukocyte Esterase Urine NEG (NEG); Nitrite Urine NEG (NEG); Urine Blood NEG (NEG); Urine Ketones NEG (NEG); Urine Protein NEG (NEG-TRACE)
[2021-04-23 11:53] LABS: Basophils Percent Auto 0.2 % (0-2); Eosinophils Absolute Auto 0.1 X10*3/uL (0.0-0.4); Hematocrit 38.7 % (37.0-47.0); Hemoglobin 12.8 g/dl (12.0-16.0); Imm Gran Abs Auto 0.01 X10*3/uL (0.00-0.03); Imm Gran Pct Auto 0.2 % (0.0-0.4); Lymphocytes Percent Auto 17.4 % (20-40); Mean Corpuscular HGB Conc 33.1 g/dl (31.0-35.0); Mean Corpuscular Hemoglobin 28.4 pg (27.0-33.0); Mean Corpuscular Volume 85.8 fL (80.0-98.0); Mean Platelet Volume 11.1 fL (9.4-12.3); Monocytes Absolute Auto 0.2 X10*3/uL (0.1-1.2); Monocytes Percent Auto 2.7 % (2-11); Neutrophils Absolute Auto 4.2 x10*3/uL (2.0-8.3); Neutrophils Percent Auto 77.5 % (45-73); Platelet Count 124 X10*3/uL (160-400); Red Blood Count 4.51 X10*6/uL (4.20-5.50); Red Cell Distribution Width 15.7 % (11.0-16.0); White Blood Count 5.5 X10*3/uL (4.8-10.8)
[2021-04-23 12:16] LABS: Thyroid Stimulating Hormone 0.88 uIU/mL (0.32-4.0)
[2021-04-23 12:17] LABS: Alanine Aminotransferase 22 U/L (0-31); Albumin Level 3.4 g/dL (3.5-5.0); Alkaline Phosphatase 102 U/L (39-117); Anion Gap 13 (12-20); Aspartate Amino Transferase 39 U/L (5-31); Bilirubin Total 1.6 mg/dL (0.0-1.0); Blood Urea Nitrogen 10 mg/dL (9-16); Calcium 8.8 mg/dL (8.4-10.2); Carbon Dioxide 26 mmol/L (22-29); Chloride 108 mmol/L (96-108); Cholesterol 122 mg/dL; Estimated Glomerular Filt Rate > 60; Glucose Fasting 109 mg/dL (60-99); HDL Cholesterol 44 mg/dL; LDL Cholesterol Calculated 67 mg/dl; Potassium 4.3 mmol/L (3.3-5.1); Sodium 143 mmol/L (135-145); Total Protein 6.6 g/dL (6.5-8.0); Triglycerides 58 mg/dL
[2021-04-23 12:20] LABS: TSH reflex Free T4 0.89 uIU/mL (0.32-4.0)
[2021-04-23 12:30] LABS: Creatinine Urine 103.33 mg/dL; Microalbum/Creatinine Ratio Ur 13.5 ug/mg cr
[2021-04-27 13:56] LABS: Vitamin D 25-OH, D2 <4 ng/mL; Vitamin D 25-OH, D3 83 ng/mL; Vitamin D 25-OH, Total 83 ng/mL (30-100)
== END 2021-04-23 08:19 | disposition home or self-care (01) ==
LOC: HO.HMGCLDS 08:18
PROVIDERS: Nurse Practitioner Family; PCP Internal Medicine; Visit Provider Internal Medicine
DX: D64.9 Anemia, unspecified (principal); E11.21 Type 2 diabetes mellitus with diabetic nephropathy; E78.5 Hyperlipidemia, unspecified; E89.0 Postprocedural hypothyroidism; R30.0 Dysuria; E55.9 Vitamin D deficiency, unspecified
CPT/HCPCS: 36415; 80053; 80061; 81003; 82043; 82306; 84443; 85025

== ENCOUNTER → 2021-05-09 11:26 | Outpatient (BNVA) | payer MEDICAID, SELFPAY | PROVIDERS: PCP Internal Medicine; Visit Provider Nurse Practitioner Gerontology | DX: E11.29 Type 2 diabetes mellitus with other diabetic kidney complication (principal); E89.0 Postprocedural hypothyroidism; R80.9 Proteinuria, unspecified; E11.42 Type 2 diabetes mellitus with diabetic polyneuropathy | CPT/HCPCS: 82947; 99212 ==

== ENCOUNTER → 2021-05-21 10:09 | Outpatient (REF) | payer MEDICAID, SELFPAY ==
--- NOTE | 2021-05-21 10:13 | CA_ITS ---
Transthoracic Echocardiogram Patient (Last, First, Middle): Larissa Howell, Javier Gender: Female Date of : 1955 Age: 65 Procedure Date: 05/21/2021 Procedure Type: Transthoracic Echocardiogram Location: OP Height: 167.64 cm Weight: 90.72 kg BSA: 2.00 m2 Heart Rate: bpm BP: 130 / 70 mmHg Market Relationship Manager: AMEE/MOE Referring MD: Tacos Woodard MD Symptoms: I50.812 - Chronic right heart failure Study Quality: Fair Conclusions: - The left ventricular systolic function is hyperdynamic. The visually estimated ejection fraction is >70%. - E/E prime ratio is >15, consistent with elevated filling pressures. - Moderate to severely increased RV size (RV basal diameter 5.35cm). - The right atrium is moderately dilated. - There is mild mitral annular calcification. - Mild pulmonary hypertension is present. Findings Left Ventricle Normal left ventricular cavity size. There is normal left ventricular wall thickness. The left ventricular systolic function is hyperdynamic. The visually estimated ejection fraction is >70%. There is no dynamic left ventricular outflow tract obstruction. E/E prime ratio is >15, consistent with elevated filling pressures. Evidence suggests grade I (mild) diastolic dysfunction. No significant gradients during rest or Valsalva. Right Ventricle There is normal right ventricular systolic function. TAPSE 1.9cm. Moderate to severely increased RV size (RV basal diameter 5.35cm). Atria The left atrium is normal in size. The right atrium is moderately dilated. Aortic Valve There is a normal trileaflet aortic valve. There is no aortic valve stenosis. There is no aortic valve regurgitation. Mitral Valve There is mild mitral annular calcification. There is trace mitral valve regurgitation. There is no mitral valve stenosis. Pulmonic Valve The pulmonic valve was not well visualized. There is trace to mild pulmonic valve regurgitation. Tricuspid Valve Normal tricuspid valve structure. There is trace tricuspid valve regurgitation. The right ventricular systolic pressure is 47 mmHg. Mild pulmonary hypertension is present. Great Vessels The aortic annulus, sinuses of valsalva, asc aorta, and aortic arch are normal in size. Venous The inferior vena cava is normal in size and collapses greater than 50% with inspiration. Pericardium/Pleural There is no evidence of pericardial effusion. Prior Study Comparison Changes noted compared to prior study dated: 06/14/2020. See comments on RV size. Measurements 2D Linear Measurements IVSd: 1.14 0.6-0.9/0.6-1.0 cm LVIDd: 4.65 3.9-5.3/4.2-5.9 cm LVIDd Index: 2.33 2.4-3.2/2.2-3.1 cm/m2 LVIDs: 2.71 2.0-3.6 cm LVPWd: 1.00 0.7-1.1 cm Ao Root: 3.40 2.1-3.5 cm LA Diam: 4.00 2.7-3.8/3.0-4.0 cm LAIDs Index: 2.00 1.5-2.3 cm/m2 LV Mass: 220.57 67-162/88-224 g LV Mass Index: 110.29 43-95/49-115 g/m2 LVOT Diam: 2.00 3.0+(-)1.3 cm 2D Systolic Function EF 4C: 69.30 >55% EF 2C: 60.50 >55% EF BiP: 64.60 >55% Mitral Valve MV Pk E: 0.97 MV PK A: 1.07 MV Decel Time: 181.00 E/A: 0.90 E'Lateral: 8.05 E'Medial: 4.24 E/E' Med: 22.90 E/E' Lat: 12.10 PHT: 53.00 MVA PHT: 4.15 Decel Arthur: 5.39 Aortic Valve AoV Pk Raheem: 1.61 AoV Mn Raheem: 1.13 AoV VTI: 0.32 AoV Pk Grad: 10.00 Aov Mn Grad: 6.00 ELTON Cont.VTI: 3.12 LVOT LVOT Pk Raheem: 1.36 LVOT Mn Raheem: 1.08 LVOT VTI: 0.32 LVOT Pk Grad: 7.00 LVOT Mn Grad: 5.00 LVOT Diam: 2.00 LVOT Area: 3.14 Diastolic Function MV Pk E: 0.97 MV Pk A: 1.07 E/A: 0.90 E'Medial: 4.24 E/E' Med: 22.90 E' Laterial: 8.05 E/E' Lat: 12.10 Right Ventricle TAPSE (mm): 1.89 TVS' Raheem: 11.40 Tricuspid Valve TR Pk Raheem: 3.31 TR Pk Grad: 44.00 RA Press: 3.00 RVSP: 47.00 Great Vessels Aorta Ao Root-2D: 3.40 2.0-3.7 cm Ao Asc: 3.40 2.1-3.4 cm Ao Arch: 2.90 Pulmonary Valve PV Pk Raheem: 1.11 Peak PV Grad: 5.00 Updated in Other Vendor System with Status of Final Laz Patel MD electronically signed on 05/21/2021 4:21:39 PM with status of Final
== END ==
LOC: HO.CARD 10:09
PROVIDERS: Visit Provider Internal Medicine Cardiovascular Disease
DX: I50.812 Chronic right heart failure (principal)
CPT/HCPCS: 93306

== ENCOUNTER → 2021-05-28 13:41 | Outpatient (BNVA) | payer MEDICAID, SELFPAY | PROVIDERS: PCP Internal Medicine; Referring Provider Internal Medicine; Visit Provider Nurse Practitioner | DX: K80.10 Calculus of gallbladder with chronic cholecystitis without obstruction (principal); K21.9 Gastro-esophageal reflux disease without esophagitis; R10.9 Unspecified abdominal pain | CPT/HCPCS: 99212 ==

== ENCOUNTER → 2021-06-06 14:28 | Outpatient (BNVA) | payer MEDICAID, SELFPAY | PROVIDERS: PCP Internal Medicine; Visit Provider Internal Medicine | DX: J30.9 Allergic rhinitis, unspecified (principal); J44.9 Chronic obstructive pulmonary disease, unspecified; G47.33 Obstructive sleep apnea (adult) (pediatric); I27.20 Pulmonary hypertension, unspecified; R09.02 Hypoxemia; Z99.81 Dependence on supplemental oxygen | CPT/HCPCS: 99212 ==

== ENCOUNTER 2021-06-14 15:00 | Outpatient (REF) | payer MEDICAID, SELFPAY ==
--- NOTE | ~2021-06-14 | MM_ITS ---
EXAMINATION: MM SCREENING DIGITAL BREAST TOMOSYNTHESIS, BILATERAL CLINICAL INFORMATION: Screening. Asymptomatic. The lifetime risk of breast cancer based on the Tyrer-Cuzick Model is 3%. COMPARISON: Mammography: 06/02/2020, 05/28/2019, 05/22/2018 TECHNIQUE: Digital breast tomosynthesis is performed in both the craniocaudal and mediolateral oblique views along with computer-aided detection (CAD). Synthesized 2D images are generated from the tomosynthesis. FINDINGS: There are scattered areas of fibroglandular density (ACR BI-RADS breast composition Category b). There are no significant masses, abnormal calcifications, or other abnormalities. There is a biopsy clip marker right breast 12:00 position. Parenchymal pattern is similar to prior exams. No developing density or architectural abnormality. No significant changes. MM/MM tomosynthesis screening BI IMPRESSION: No mammographic evidence of malignancy. ASSESSMENT: BI-RADS 1: Negative RECOMMENDATION: Routine annual mammography screening. This patient's information was entered into a reminder system with a target due date for their next mammogram.
== END 2021-06-14 15:01 | disposition home or self-care (01) ==
LOC: HO.MAMMO 15:00
PROVIDERS: Visit Provider Internal Medicine
DX: Z12.31 Encounter for screening mammogram for malignant neoplasm of breast (principal)
CPT/HCPCS: 77063; 77067

== ENCOUNTER → 2021-06-18 13:23 | Outpatient (BNVA) | payer MEDICAID, SELFPAY | PROVIDERS: PCP Internal Medicine; Referring Provider Internal Medicine; Visit Provider Internal Medicine Cardiovascular Disease | DX: I50.812 Chronic right heart failure (principal) | CPT/HCPCS: 93005; 99212 ==

== ENCOUNTER 2021-08-24 09:39 | Outpatient (REF) | payer MEDICAID, SELFPAY ==
[2021-08-24 12:31] LABS: Alanine Aminotransferase 15 U/L (0-31); Albumin Level 3.5 g/dL (3.5-5.0); Alkaline Phosphatase 91 U/L (39-117); Anion Gap 13 (12-20); Aspartate Amino Transferase 30 U/L (5-31); Bilirubin Total 1.6 mg/dL (0.0-1.0); Blood Urea Nitrogen 12 mg/dL (9-16); Calcium 9.5 mg/dL (8.4-10.2); Carbon Dioxide 29 mmol/L (22-29); Chloride 106 mmol/L (96-108); Cholesterol 163 mg/dL; Estimated Glomerular Filt Rate > 60; Glucose Fasting 118 mg/dL (60-99); HDL Cholesterol 61 mg/dL; LDL Cholesterol Calculated 89 mg/dl; Potassium 4.5 mmol/L (3.3-5.1); Sodium 143 mmol/L (135-145); Total Protein 6.8 g/dL (6.5-8.0); Triglycerides 65 mg/dL
[2021-08-24 12:36] LABS: Thyroid Stimulating Hormone 0.51 uIU/mL (0.32-4.0)
[2021-08-24 12:45] LABS: Creatinine Urine 72.41 mg/dL
[2021-08-31 21:51] LABS: Vitamin D 25-OH, D2 <4 ng/mL; Vitamin D 25-OH, D3 44 ng/mL; Vitamin D 25-OH, Total 44 ng/mL (30-100)
== END 2021-08-24 09:40 | disposition home or self-care (01) ==
LOC: HO.HMGCLDS 09:39
PROVIDERS: Visit Provider Internal Medicine
DX: E11.9 Type 2 diabetes mellitus without complications (principal); E78.5 Hyperlipidemia, unspecified; E89.0 Postprocedural hypothyroidism; E55.9 Vitamin D deficiency, unspecified
CPT/HCPCS: 36415; 80053; 80061; 82043; 82306; 84443

== ENCOUNTER → 2021-09-05 11:01 | Outpatient (BNVA) | payer MEDICAID, SELFPAY | PROVIDERS: PCP Internal Medicine; Visit Provider Internal Medicine | DX: J44.9 Chronic obstructive pulmonary disease, unspecified (principal); R09.02 Hypoxemia; J30.9 Allergic rhinitis, unspecified; G47.33 Obstructive sleep apnea (adult) (pediatric); I27.20 Pulmonary hypertension, unspecified | CPT/HCPCS: 99212 ==

== ENCOUNTER 2021-10-16 10:05 | Outpatient (REF) | payer MEDICAID, SELFPAY ==
[2021-10-16 10:43] LABS: COVID-19 Test Negative (Negative); IDNOW Serial# 08D9AD1C
== END 2021-10-16 10:06 | disposition home or self-care (01) ==
LOC: HO.LAB 10:05
PROVIDERS: Visit Provider Internal Medicine
DX: Z20.822 Contact with and (suspected) exposure to COVID-19 (principal)
CPT/HCPCS: 87635; C9803

== ENCOUNTER 2021-11-19 12:29 | Outpatient (REF) | payer MEDICAID, SELFPAY ==
[2021-11-19 13:46] LABS: MANUAL DIFF FLAG NO
[2021-11-19 13:58] LABS: INTERNATIONAL NORM RATIO 1.2 (0.9-1.1); Prothrombin Time 13.6 SEC (9.9-13.0)
[2021-11-19 14:05] LABS: Basophils Percent Auto 0.4 % (0-2); Eosinophils Absolute Auto 0.1 X10*3/uL (0.0-0.4); Eosinophils Percent Auto 1.1 % (0-4); Hematocrit 40.7 % (37.0-47.0); Hemoglobin 13.1 g/dl (12.0-16.0); Imm Gran Abs Auto 0.03 X10*3/uL (0.00-0.03); Imm Gran Pct Auto 0.4 % (0.0-0.4); Lymphocytes Absolute Auto 1.5 X10*3/uL (1.2-4.9); Lymphocytes Percent Auto 17.9 % (20-40); Mean Corpuscular HGB Conc 32.2 g/dl (31.0-35.0); Mean Corpuscular Hemoglobin 27.8 pg (27.0-33.0); Mean Corpuscular Volume 86.2 fL (80.0-98.0); Mean Platelet Volume 12.8 fL (9.4-12.3); Monocytes Absolute Auto 0.5 X10*3/uL (0.1-1.2); Monocytes Percent Auto 5.5 % (2-11); Neutrophils Absolute Auto 6.2 x10*3/uL (2.0-8.3); Neutrophils Percent Auto 74.7 % (45-73); Platelet Count 128 X10*3/uL (160-400); Red Blood Count 4.72 X10*6/uL (4.20-5.50); Red Cell Distribution Width 16.3 % (11.0-16.0); White Blood Count 8.3 X10*3/uL (4.8-10.8)
== END 2021-11-19 12:30 | disposition home or self-care (01) ==
LOC: HO.HMGCLDS 12:29
PROVIDERS: PCP Internal Medicine; Visit Provider Physician Assistant
DX: D69.2 Other nonthrombocytopenic purpura (principal)
CPT/HCPCS: 36415; 85025; 85610

== ENCOUNTER → 2021-11-27 10:23 | Outpatient (BNVA) | payer MEDICAID, SELFPAY | PROVIDERS: PCP Internal Medicine; Referring Provider Internal Medicine; Visit Provider Nurse Practitioner | DX: K21.9 Gastro-esophageal reflux disease without esophagitis (principal); K80.20 Calculus of gallbladder without cholecystitis without obstruction; K74.4 Secondary biliary cirrhosis; Z98.890 Other specified postprocedural states | CPT/HCPCS: 99212 ==

== ENCOUNTER 2021-11-29 07:56 | Outpatient (REF) | payer MEDICAID, SELFPAY ==
[2021-11-29 09:05] LABS: Bilirubin Direct 0.8 mg/dL (0.0-0.5)
[2021-12-03 12:02] LABS: Alpha Fetoprotein 2.4 ng/mL
== END 2021-11-29 07:57 | disposition home or self-care (01) ==
LOC: HO.LAB 07:56
PROVIDERS: PCP Internal Medicine; Visit Provider Nurse Practitioner
DX: K74.4 Secondary biliary cirrhosis (principal)
CPT/HCPCS: 36415; 82105; 82248

== ENCOUNTER → 2021-12-03 10:45 | Outpatient (BNVA) | payer MEDICAID, SELFPAY | PROVIDERS: PCP Internal Medicine; Referring Provider Internal Medicine; Visit Provider Internal Medicine Cardiovascular Disease | DX: I50.812 Chronic right heart failure (principal) | CPT/HCPCS: 99212 ==

== ENCOUNTER → 2022-01-02 11:11 | Outpatient (BNVA) | payer MEDICAID, SELFPAY | PROVIDERS: PCP Internal Medicine; Visit Provider Internal Medicine | DX: J30.9 Allergic rhinitis, unspecified (principal); J44.9 Chronic obstructive pulmonary disease, unspecified; G47.33 Obstructive sleep apnea (adult) (pediatric); I27.20 Pulmonary hypertension, unspecified; R09.02 Hypoxemia | CPT/HCPCS: 99212 ==

== ENCOUNTER 2022-01-03 09:11 | Outpatient (REF) | payer MEDICAID, SELFPAY ==
[2022-01-03 11:27] LABS: Alanine Aminotransferase 16 U/L (0-31); Albumin Level 3.5 g/dL (3.5-5.0); Alkaline Phosphatase 91 U/L (39-117); Anion Gap 13 (12-20); Aspartate Amino Transferase 34 U/L (5-31); Bilirubin Total 1.8 mg/dL (0.0-1.0); Blood Urea Nitrogen 11 mg/dL (9-16); Calcium 9.1 mg/dL (8.4-10.2); Carbon Dioxide 25 mmol/L (22-29); Chloride 107 mmol/L (96-108); Cholesterol 176 mg/dL; Estimated Glomerular Filt Rate > 60; Glucose Fasting 120 mg/dL (60-99); HDL Cholesterol 60 mg/dL; LDL Cholesterol Calculated 104 mg/dl; Sodium 141 mmol/L (135-145); Total Protein 6.8 g/dL (6.5-8.0); Triglycerides 61 mg/dL
[2022-01-03 11:52] LABS: TSH reflex Free T4 (Prenatal) 4.18 uIU/mL (0.32-4.0)
[2022-01-03 11:56] LABS: Creatinine Urine 73.32 mg/dL; Microalbum/Creatinine Ratio Ur 8.1 ug/mg cr
[2022-01-03 12:47] LABS: Free T4 (Free Thyroxine) 1.25 ng/dL (0.71-1.85)
== END 2022-01-03 09:12 | disposition home or self-care (01) ==
LOC: HO.HMGCLDS 09:11
PROVIDERS: PCP Internal Medicine; Visit Provider Internal Medicine
DX: E78.5 Hyperlipidemia, unspecified (principal); E89.0 Postprocedural hypothyroidism; E11.9 Type 2 diabetes mellitus without complications
CPT/HCPCS: 36415; 80053; 80061; 82043; 84439

== ENCOUNTER 2022-01-09 07:54 | Outpatient (REF) | payer MEDICAID, SELFPAY ==
--- NOTE | ~2022-01-09 | US_ITS ---
EXAMINATION: US COMPLETE ABDOMEN WITH LIVER ELASTOGRAPHY CLINICAL INFORMATION: Secondary biliary cirrhosis COMPARISON: Previous abdominal ultrasound and CT March 2020 TECHNIQUE: Real-time imaging of the abdominal viscera. Noninvasive ultrasound liver fibrosis assessment is performed using Daren ElastPQ point quantification shear wave elastography (2D-SWE) with a C5-2 MHz transducer. Multiple elastography samples are obtained. FINDINGS: PANCREAS: Not well visualized due to bowel gas ABDOMINAL AORTA: The proximal segment is normal in caliber. The main distal abdominal aorta are not well visualized. INFERIOR VENA CAVA: Visualized portions are normal. LIVER: Cirrhotic-appearing liver. No focal liver lesion. No biliary duct dilatation. The right lobe measures 11.8 cm in length. The left lobe measures 8.6 cm in length. Portal flow is normal/hepatopedal Shear wave liver elastography median stiffness is 1.3 m/s (reference: normal median stiffness is 1.3 m/s or less). IQR/median stiffness to assess sampling precision is 0.13 (reference: good quality data set is IQR/median stiffness of 0.15 or less). GALLBLADDER: There are gallstones in the gallbladder. Gallbladder is normal in size. Gallbladder wall is normal. COMMON BILE DUCT: Not well visualized. The visualized common bile duct is normal in caliber measuring 0.7 cm in diameter. RIGHT KIDNEY: There is a 1.6 cm cyst in the upper pole.. No hydronephrosis. No renal calculi or focal parenchymal lesions. The kidney measures 11 cm in maximum dimension. LEFT KIDNEY: Normal. No hydronephrosis. No renal calculi or focal parenchymal lesions. The kidney measures 11.6 cm in maximum dimension. SPLEEN: There are splenic varices. There is a 1.4 cm splenule. The spleen measures 11.2 cm in maximum dimension. FREE FLUID: None. US/US abdomen comp w elastography IMPRESSION: 1. Impression: Limited exam. Cirrhotic-appearing liver. Gallstones. Right renal cyst. Splenic varices. 2. Liver elastography: Adequate liver sampling. Normal liver stiffness. REFERENCE: Society of Radiologists in Ultrasound Liver Stiffness Thresholds (2019): LIVER STIFFNESS THRESHOLDS: *Liver Stiffness equal or less than 1.3 m/s: High probability of being normal. *Liver Stiffness less than 1.7 m/s: In the absence of other known clinical signs, rules out compensated advanced chronic liver disease. *Liver Stiffness 1.7-2.1 m/s: Suggestive of compensated advanced chronic liver disease but need further test for confirmation. *Liver Stiffness over 2.1 m/s: Rules in compensated advanced chronic liver disease. *Liver Stiffness over 2.4 m/s: Suggestive of clinically significant portal hypertension. QUALITY OF DATA SET: *IQR/Median value equal or less than 0.15 implies a quality data set. *IQR/Median value over 0.15 implies a poor quality data set. SIGNIFICANT CHANGE FROM PRIOR EXAM: Significant change if liver stiffness measurement is 10% or greater from prior exam. OTHER CONSIDERATIONS: The stage of liver fibrosis may be overestimated in the setting of acute hepatitis, liver inflammation, elevated liver function tests, hepatic vascular congestion, obstructive cholestasis, non-fasting state, and infiltrative diseases such as amyloidosis and lymphoma. In some patients with NAFLD, the liver stiffness thresholds for compensated advanced chronic liver disease may be lower. In causes other than viral hepatitis and NAFLD, liver stiffness thresholds are not well established.
== END 2022-01-09 07:55 | disposition home or self-care (01) ==
LOC: HO.US 07:54
PROVIDERS: Visit Provider Nurse Practitioner
DX: K74.4 Secondary biliary cirrhosis (principal)
CPT/HCPCS: 76705; 76981

== ENCOUNTER 2022-01-14 11:38 | Outpatient (REF) | payer MEDICAID, SELFPAY ==
[2022-01-14 15:33] LABS: Thyroid Stimulating Hormone 0.69 uIU/mL (0.32-4.0)
== END 2022-01-14 11:39 | disposition home or self-care (01) ==
LOC: HO.HMGCLDS 11:38
PROVIDERS: PCP Internal Medicine; Visit Provider Internal Medicine
DX: E89.0 Postprocedural hypothyroidism (principal)
CPT/HCPCS: 36415; 84443

== ENCOUNTER 2022-01-17 15:30 | Outpatient (REF) | payer MEDICAID, SELFPAY ==
--- NOTE | 2022-01-17 15:35 | ECG_ITS ---
Test Reason : chest pain Blood Pressure : / mmHG Vent. Rate : 098 BPM Atrial Rate : 098 BPM P-R Int : 182 ms QRS Dur : 096 ms QT Int : 376 ms P-R-T Axes : 024 100 033 degrees QTc Int : 480 ms Normal sinus rhythm with sinus arrhythmia Rightward axis Borderline ECG When compared with ECG of 09-APR-2020 20:18, No significant change was found Referred By: Niecy Lindsey Electronically Signed By:CHRISTIE WHITNEY MD
== END 2022-01-17 15:31 | disposition home or self-care (01) ==
LOC: HO.LAB 15:30
PROVIDERS: PCP Internal Medicine; Visit Provider Internal Medicine
DX: R07.89 Other chest pain (principal); T78.40XA Allergy, unspecified, initial encounter
CPT/HCPCS: 36415; 86003; 93005